=== PATIENT | male | born 1955 | race Caucasian/White ===

== ENCOUNTER 2017-06-01 06:38 | Day surgery (SDC) | payer OTHER ==
[~2017-06-01] VITALS: Ht 167.6 cm; Wt 62.2 kg
[~2017-06-01 06:38] MED LIST: CIPR500T2 PO; Z.0.NO CURRENT MEDS
[2017-06-01] MEDS ORDERED: IOHEXOL 350 MG/ML 50 ML BTL (for Cath Lab) OTHER ONE (06:39)
[2017-06-01 07:40] VITALS: BP 148/77; PULSE 65; RESP 18; TEMP 98; O2SAT 98
[2017-06-01] MEDS ORDERED: IBUP-232 PO (07:40)
[2017-06-01] MEDS ORDERED: AMBI10TA PO (07:40)
[2017-06-01] MEDS ORDERED: OMEP40CA2 PO (07:40)
[2017-06-01] MEDS ORDERED: OXYC30TA PO (07:40)
[2017-06-01] MEDS ORDERED: ZANA4CAP PO (07:40)
[2017-06-01] MEDS ORDERED: SODIUM CHLOR 0.9% 1000 ML INJ 1,000 ML IV SCH (07:45)
[2017-06-01 07:48] LABS: AUTOMATED NEUTROPHIL # 2.3 TH/MM3 (1.8-7.7); BASOPHIL # 0.1 TH/MM3 (0-0.2); EOSINOPHIL # 0.2 TH/MM3 (0-0.4); EOSINOPHIL % 2.7 % (0.0-4.0); HEMATOCRIT 40.7 % (39.0-51.0); LYMPH % 51.3 % (9.0-44.0); LYMPHOCYTE # 3.4 TH/MM3 (1.0-4.8); MEAN CORPUSCULAR HEMOGLOBIN 26.8 PG (27.0-34.0); MEAN CORPUSCULAR HGB CONC 34.4 % (32.0-36.0); MEAN PLATELET VOLUME 8.2 FL (7.0-11.0); MONO % 10.1 % (0.0-8.0); MONOCYTE # 0.7 TH/MM3 (0-0.9); NEUT % 34.9 % (16.0-70.0); PLATELET COUNT 301 TH/MM3 (150-450); RED BLOOD COUNT 5.22 MIL/MM3 (4.50-5.90); WHITE BLOOD COUNT 6.6 TH/MM3 (4.0-11.0)
[2017-06-01 08:03] LABS: BICARBONATE 28.7 MEQ/L (21.0-32.0); CALCIUM 8.6 MG/DL (8.5-10.1); CREATININE 1.07 MG/DL (0.60-1.30)
[2017-06-01 08:05] LABS: PROTHROMBIN TIME - PATIENT 10.4 SEC (9.8-11.6)
[2017-06-01] MEDS ORDERED: HEPARIN SODIUM - IV 10,000 UNITS/10 ML VIAL ONE (10:01)
[2017-06-01] MEDS ORDERED: NITROGLYCERIN INJ 5 ML ONE (10:01)
[2017-06-01] MEDS ORDERED: HEPARIN-NS/PF FLUSH BAG 2,000 ML IV FLUSH ONE (10:01)
[2017-06-01] MEDS ORDERED: MIDAZOLAM HCL 2 MG/2 ML VIAL ONE (10:02)
[2017-06-01] MEDS ORDERED: VERAPAMIL HCL 5 MG/2 ML VIAL ONE (10:02)
[2017-06-01] MEDS ORDERED: MISC INFORMATION XX ONE (11:15)
--- NOTE | 2017-06-01 11:15 | CATHPROC ---
[employer] HIS Report Study Information Study Number Admission Scheduled Start Study Start [id number] Jun 01 2017 6:38AM 06/01/2017 Jun 01 2017 9:47AM Catherine Service Cardiac Catheterization Admit Source Facility Department Other [facility] - Senior Security Engineer Physician and Clinical Staff Initial Koko Lomas Shuttle FixerDemarcus Betts RN Shuttle Fixer Jessica Baker RN Shuttle Fixer Isha Mixon,WENDI Recorder Moisés Anand,RT(R) ScrCarolina ValdiviaRT(R) Procedures Performed Procedure Location (Site) Vessel Name Coronary Angiograms LCA Left Coronary Coronary Angiograms RCA Right Coronary Wire insertion Radial (right) Radial Art. Equipment Time Mail Weigher Description Size Mfg Part Number Used/Scraped CATHETER, FR5 SWAN LY 10:30 LEON JERONIMO FR 5 [id number] *[id number] Used MONITOR TRANSDUCER, TRUWAVE [id number] 09:54 LEON JERONIMO * Used W/STOCKCOCK *[id number] TRANSDUCER, TRUWAVE [id number] 09:54 LEON JERONIMO * Used W/STOCKCOCK *[id number] INTRODUCER SET, 09:54 [employer] FR 5 [id number] *[id number] Used MICROPUNCTURE STIFF [phone] *[id number] 534-521T *[id number] 09:54 [employer] PACK, CCL CUSTOM * Used *[id number] BAND, RADIAL COMPRESSION TR [id number] 11:00 [employer] MEDICAL 24CM Used SHORT 24 *[id number] 09:54 [employer] MEDICAL WIRE, 3MMJ .035 180CM 180CM Used *[id number] 09:54 NAMIC MANIFOLD, 2 PORT * Used *[id number] 09:54 NAMIC MANIFOLD, 4 PORT * Used *[id number] 09:54 [employer] OMNIPAQUE, 350 MG, 150ML 150ML [id number] Used [id number] 09:54 [employer] BLANKET,WARM AIR CCL * Used *[id number] SHEATH, FR6 TRANSRADIAL RM*[id number] 10:29 [employer] FR 6 Used SLENDER 10CM *[id number] SHEATH, FR6 TRANSRADIAL RM*[id number] 10:29 [employer] FR 6 Used SLENDER 10CM *[id number] History: Current Medications Medication Dosage/Unit Route Frequency Last Date/Time Taken Selena Lopez History: Allergies Allergy Reaction penicillin G HIVES History: Risk Factors Family History of Hypertension Dyslipidemia Previous ID Previous Heart Failure Premature CAD Yes No No No No Prior Valve Prior PCI Prior CABG Surgery No No No Cerebrovascular Peripheral Artery Chronic Lung On Dialysis Diabetes Disease Disease Disease No No No No No History: Symptoms/Diagnosis Selection Items SOB History: Stress Tests Stress or Imaging Studies Performed No History: Other Disease Selection Items HTN History: Other Current Smoker Method Quit Packs a Day Years Used Pack Years No Cigarettes 12 Years Ago 1 30 30 Labs Hgb (g/dl) Hct (%) RBC (MIL/MM3) WBC (l/cumm) Platelets (thousands) 11.60-17.00 35.00-51.00 4.00-5.90 4.00-11.00 150.00-450.00 14.0 40.7 5.2 6.6 301 Glucose (mg/dl) BUN (mg/dl) Creatinine (mg/dl) BUN:Creatinine (1:x) 74.00-106.00 7.00-18.00 0.50-1.30 10.00-20.00 93 15 1.0 15 Na (meq/l) K (meq/l) Cl (meq/l) CO2 (mmol/L) Ca (mg/dl) 136.00-145.00 3.50-5.10 98.00-107.00 21.00-32.00 8.50-10.10 140 3.9 105 28.7 8.6 PT (sec) PTT (sec) INR (PTT:PT) 9.80-11.60 24.30-30.10 0.90-1.10 10.4 25.8 1 CPK-MB (ng/ML) 0.50-3.60 Not Drawn Medication Medication Total Dose (Bolus/Oral) Medication Total Dosage/Unit 1% XYLOCAINE 25 mL ATROPINE 0.5 mg FENTANYL 100 mcg RADIAL COCKTAIL 5 mL (Bolus) Medications (Bolus/Oral) Medication Time Given Dosage/Unit Administered By Reason FENTANYL 06/01/2017 10:24:52 AM 50 mcg Demarcus Sandoval 50 mcg FENTANYL given in lab by Demarcus Sandoval RN in Left Antecubital via Peripheral IV. 1% XYLOCAINE 06/01/2017 10:25:55 AM 5 mL Koko Du 5 mL 1% XYLOCAINE given in lab by Koko Du in Right Radial via Subcutaneous. Ntg 200mcg Verapamil 2.5mg Heparin RADIAL COCKTAIL 06/01/2017 10:28:02 AM 5 mL (Bolus) Koko Du 2000U 5 mL (Bolus) RADIAL COCKTAIL given in lab by Koko Du in Right Radial via Radial. Using [S olution Name]. Reason: Ntg 200mcg Verapamil 2.5mg Heparin 2000U. FENTANYL 06/01/2017 10:28:43 AM 50 mcg Demarcus Sandoval 50 mcg FENTANYL given in lab by Demarcus Sandoval, RN in Left Antecubital via Peripheral IV. 1% XYLOCAINE 06/01/2017 10:28:46 AM 20 mL Koko Du 20 mL 1% XYLOCAINE given in lab by Koko Du in Right Arm via Subcutaneous. ATROPINE 06/01/2017 10:34:30 AM 0.5 mg Demarcus Sandoval 0.5 mg ATROPINE given in lab by Demarcus Sandoval, RN in Left Antecubital via Peripheral IV. Medication (Drip) Medication Time Given Dosage/Unit Concentration/Unit Diluent (ml) Solution IV Solutions 06/01/2017 9:50:02 AM 0 mL (IV) 500 NaCl .9 Patient arrived on IV Solutions in Left Antecubital via Peripheral IV. Pump/Drip Flow = 20 ml/hr usin g NaCl .9. Final Case Assessment Cardiovascular HR Rhythm NIBP Chest Pain 86 Sinus 137/76 0 Edema Present Skin color Skin None Normal Warm Circulatory - Right Pulses Dorsalis Pedis Femoral Radial 2 2 2 Scale (0,1,2,3,4,d) Circulatory - Left Pulses Dorsalis Pedis Femoral Radial 2 Scale (0,1,2,3,4,d) Neurological State Oriented to time-place- Alert Moves all extremities person Respiration - General Respiration Rate SpO2 (%) O2 (lpm) (B/min) 7 96 0 Initial Case Assessment Cardiovascular HR Rhythm NIBP Chest Pain 54 Sinus 121/79 0 Edema Present Skin color Skin None Normal Warm Dry Circulatory - Right Pulses Dorsalis Pedis Femoral Radial 2 2 2 Scale (0,1,2,3,4,d) Circulatory - Left Pulses Dorsalis Pedis Femoral Radial 2 Scale (0,1,2,3,4,d) Neurological State Oriented to time-place- Alert Moves all extremities person Respiration - General Respiration Rate SpO2 (%) O2 (lpm) (B/min) 17 99 0 Chronological Log Time Study Chronological Log 9:49:28 Patient arrived via Bed. 9:49:29 Patient Name, D.O.B, / Armband Verified By R.N. 9:49:30 Consent signed by the physician and the patient and verified by the Senior Security Engineer staff. 9:49:30 Pre-op and post- op instructions given; patient acknowledges understanding of instructions. 9:49:31 Verbal Stimulation=2 Physical Stimulation=2 Airway=2 Respiration=2 TOTAL=8. (0=absent, 1=li mited, 2=present) 9:49:33 Presedation assessment performed by Senior Security Engineer RN. 9:49:46 Allens test performed on the right radial and ulnar artery. 9:49:51 Patient has been NPO for More than 6Hrs. 9:49:52 Skin Breakdown- none per patient. 9:49:53 Patient Warmer Placed on the Table. 9:49:55 Marilia Prominences Protected 9:49:57 A # 20 IV was noted in the Antecubital (left). Grade = 0 9:50:02 Patient arrived on IV Solutions in Left Antecubital via Peripheral IV. Pump/Drip Flow = 20 ml/hr using NaCl .9. 9:50:03 History and physical on the chart or being dictated. Assessment: Initial Case, HR=54 BPM, Rhythm=Sinus, RKWF=850/79 mmhg, Chest Pain=0, Edema=None, Color=Normal, Skin = Warm, Dry Right Pulses: Sam Ped=2, Femoral=2, Radial=2 9:55:00 Left Pulses: Femoral=2 Neurological: State=Alert, Ox3, VELEZ Respiration: Resp=17 B/min, SpO2=99 %, O2=0 lpm Vitals capture started with the following parameters, Patient=Adult, Interval=5 min, Initial Pr zexlkl=600 mmHg, 10:03:29 Deflation Rate=5 mmHg 10:04:32 Right Radial and groin(s) prepped with 2% chlorhexidine, and draped after a 3 min. waiting time. 10:05:44 paged 10:05:51 HR=54 bpm, TGQM=061/79 mmhg, SpO2=99.0 %, Resp=17 B/min, Pain=0, Мария=10, Thacker=2 10:09:00 Pressure channel 1 zeroed. 10:09:38 HR=61 bpm, TRLV=399/78 mmhg, SpO2=97.0 %, Resp=7 B/min, Pain=0, Мария=10, Thacker=2 10:14:43 HR=59 bpm, MQHR=352/76 mmhg, SpO2=97.0 %, Resp=9 B/min, Pain=0, Мария=10, Thacker=2 10:19:04 HR=58 bpm, UPDC=041/68 mmhg, SpO2=98.0 %, Resp=5 B/min, Pain=0, Мария=10, Thacekr=2 10:21:08 MD arrived. 10:24:03 HR=64 bpm, JXSD=691/73 mmhg, SpO2=98.0 %, Resp=7 B/min, Pain=0, Мария=10, Thacker=2 Time Out. Correct patient, correct procedure, correct physician, power injector not loaded with contrast with surgical 10:24:38 team present. Time Out Concurred by MD and individual staff in procedure. 10:24:49 Case Start 10:24:52 50 mcg FENTANYL given in lab by Demarcus Sandoval, WENDI in Left Antecubital via Peripheral IV. 10:25:55 5 mL 1% XYLOCAINE given in lab by Koko Du in Right Radial via Subcutaneous. 10:26:07 Access site was Radial Artery. A SHEATH, FR6 TRANSRADIAL SLENDER 10CM FR 6 was advanced into the Radial (right) using the Perc utaneous 10:26:17 technique. 5 mL (Bolus) RADIAL COCKTAIL given in lab by Koko Du in Right Radial via Radial. Us ing [Solution Name]. 10:28:02 Reason: Ntg 200mcg Verapamil 2.5mg Heparin 2000U. 10:28:43 50 mcg FENTANYL given in lab by Demarcus Sandoval, WENDI in Left Antecubital via Peripheral IV. 10:28:46 20 mL 1% XYLOCAINE given in lab by Koko Du in Right Arm via Subcutaneous. 10:29:06 HR=70 bpm, DEWH=822/61 mmhg, SpO2=95.0 %, Resp=11 B/min, Pain=0, Мария=10, Thacker=2 10:30:43 NIBP STAT measurement started. 10:31:19 HR=45 bpm, NIBP=82/41 mmhg, SpO2=98.0 %, Resp=10 B/min, Pain=0, Мария=10, Thacker=2 10:31:34 Access site was Brachial Artery. A SHEATH, FR6 TRANSRADIAL SLENDER 10CM FR 6 was advanced into the Brach. Vein (right) using the Percutaneous :31:47 technique. 10:32:21 A CATHETER, FR5 SWAN LY MONITOR FR 5 was inserted via RA 10:33:14 Vitals capture stopped. 10:34:30 0.5 mg ATROPINE given in lab by Demarcus Sandoval RN in Left Antecubital via Peripheral IV. 10:35:28 NIBP STAT measurement started. 10:35:53 EW=476 bpm, NIBP=93/48 mmhg, SpO2=98.0 %, Resp=9 B/min, Pain=0, Мария=10, Thacker=2 Vitals capture started with the following parameters, Patient=Adult, Interval=5 min, Initial Pr noiwqa=507 mmHg, 10:37:13 Deflation Rate=5 mmHg 10:37:40 HR=99 bpm, NIBP=99/58 mmhg, SpO2=95.0 %, Resp=12 B/min, Pain=0, Мария=10, Thacker=2 Recorded Pressure: PCW, TN=059, Condition=Condition 1 10:38:01 (Pulmonary Capillary Wedge) PCW 10:39:47 Saturation: Site=PA (Pulmonary Artery) , O2=81.3 %, Hgb=14 gm/dl, Condition=Condition 1. Us ed in calculation. 10:40:45 Saturation: Site=Ao (Aorta) , O2=94 %, Hgb=14 gm/dl, Condition=Condition 1. Used in calcula tion. Recorded Pressure: MPA, HR=96, Condition=Condition 1 10:40:59 (Main Pulmonary Artery) MPA 09/07/14 Recorded Pressure: MPA, HR=94, Condition=Condition 1 10:41:32 (Main Pulmonary Artery) MPA 26/-02/22 10:43:10 HR=95 bpm, JVME=172/73 mmhg, SpO2=92.0 %, Resp=6 B/min, Pain=0, Мария=10, Thacker=2 10:43:47 Saturation: Site=PA (Pulmonary Artery) , O2=80.2 %, Hgb=14 gm/dl, Condition=Condition 1. Us ed in calculation. Recorded Pressure: RV, HR=97, Condition=Condition 1 10:44:48 (Right Ventricle) RV 30/0/6 Recorded Pressure: RA, HR=95, Condition=Condition 1 10:45:09 (Right Atrium) RA 6/5/3 10:46:36 Saturation: Site=RA (Right Atrium) , O2=78.2 %, Hgb=14 gm/dl, Condition=Condition 1. Used i n calculation. 10:47:20 [place] Ly Catheter Removed 10:47:44 HR=93 bpm, FCSB=898/65 mmhg, SpO2=92.0 %, Resp=14 B/min, Pain=0, Мария=10, Thacker=2 A JR 4.0 INFINITI CATHETER FR 5 was advanced over a wire. OMNIPAQUE, 350 MG, 150ML 150ML was us ed for 10:48:53 injections. Recorded Pressure: LV, TI=557, Condition=Condition 1 10:50:40 (Left Ventricle) LV 118/0/16 Recorded Pressure: LV, Ao, RJ=826, Condition=Condition 1 10:50:56 (Left Ventricle) LV 112/7/19, (Aorta) Ao 108/59/82 Recorded Pressure: Ao, HR=90, Condition=Condition 1 10:52:21 (Aorta) Ao 101/57/78 10:52:23 The RCA was injected and visualized at various angles. OMNIPAQUE, 350 MG, 150ML 150ML used . 10:52:43 HR=91 bpm, OGWG=962/75 mmhg, SpO2=94.0 %, Resp=14 B/min, Pain=0, Мария=10, Thacker=2 10:53:10 Catheter was removed A JL 3.5 INFINITI CATHETER FR 5 was advanced over a wire. OMNIPAQUE, 350 MG, 150ML 150ML was us ed for 10:53:46 injections. 10:56:01 A WIRE, 3MMJ .035 180CM 180CM was inserted via Radial (right). 10:56:54 Wire removed 10:57:48 HR=89 bpm, LMHZ=663/68 mmhg, SpO2=93.0 %, Resp=7 B/min 10:57:49 The LCA was injected and visualized at various angles. OMNIPAQUE, 350 MG, 150ML 150ML used . 10:58:44 A WIRE, 3MMJ .035 180CM 180CM was inserted via Radial (right). 10:58:56 Catheter was removed 10:58:57 Wire removed 10:59:59 Case End 11:00:58 Activated Clotting Time Drawn 11:01:30 No case complications noted. 11:01:31 Cine recording checked. 11:02:45 HR=90 bpm, TDPF=605/76 mmhg, SpO2=97.0 %, Resp=12 B/min, Pain=0, Мария=10, Thacker=2 11:03:12 Bedside Report will be given. 11:03:18 A Left and Right Heart Cath was performed. Radial Compression Device Used. 10 mLs of air placed in BAND, RADIAL COMPRESSION TR SHORT 24 24 CM. Affected 11:03:35 hand 97 % O2 saturation. 11:04:13 ACT (Normal Range 90-180) = 169 Assessment: Final Case, HR=86 BPM, Rhythm=Sinus, AKRA=913/76 mmhg, Chest Pain=0, Edema=None, Color=Normal, Skin = Warm Right Pulses: Sam Ped=2, Femoral=2, Radial=2 11:04:54 Left Pulses: Femoral=2 Neurological: State=Alert, Ox3, VELEZ Respiration: Resp=7 B/min, SpO2=96 %, O2=0 lpm 11:07:49 Sheath removed; pressure applied to access site. Brachial vein. 11:07:50 HR=84 bpm, ACFQ=063/69 mmhg, SpO2=96.0 %, Resp=18 B/min, Pain=0, Мария=10, Thacker=2 End Study - Contrast Media Used In Study Contrast Total Opened (mL) Total Used (mL) Total Wasted (mL) Omnipaque 150 40 110 End Study - Maximum Contrast Load Max Contrast Load (mL) 310.9 End Study - Radiation Exposure Fluoro Time (minutes) 5.1 End Study - Patient Disposition Complications Transferred To Interventional Outcome No Outpatient Bed No attempt made
--- NOTE | 2017-06-02 09:00 | EKG ---
Date Performed: 06/01/2017 Time Performed: 07:15:30 PTAGE: 61 years EKG: Sinus rhythm . Normal ECG NO PREVIOUS TRACING DOCTOR: Saundra Hylton Interpretating Date/Time 06/02/2017 08:58:50
--- NOTE | 2017-06-05 07:13 | MA ---
cc: Koko Du DO DATE: 06/01/2017 PROCEDURE: Left heart catheterization, right heart catheterization, coronary angiogram, ultrasound guided access. PREPROCEDURE DIAGNOSIS: Severe mitral regurgitation for possible mitral valve replacement versus repair, chest pain. POSTPROCEDURE DIAGNOSIS: Severe mitral regurgitation, minimal coronary artery disease. MEDICATIONS: Fentanyl 100 mcg, atropine 0.5 mg, nitro 200 mcg, heparin 2500 units, verapamil 2.5 mg. CONTRAST USED: 40 mL. FLUOROSCOPY: 5.1 minutes. MODERATE SEDATION: 0 minutes. FRAILTY SCORE: 2. ESTIMATED BLOOD LOSS: 10 mL. PROCEDURAL SUMMARY: Ruperto Scott is a pleasant 61-year-old male who was found to have severe mitral regurgitation by echocardiogram with mitral valve prolapse and recommended cardiac catheterization in anticipation of mitral valve repair versus replacement. Risks, benefits and alternatives were explained to him and he consented as such. He was brought to the lab and prepped in the usual sterile fashion. The right radial artery was accessed using a modified Seldinger technique and placement of a 5/6 Macanese slender sheath. Right brachial vein was accessed using the modified Seldinger technique with ultrasound guidance and placement of a 5/6 Macanese slender sheath. Both were easily aspirated and flushed. The Paisley-Alena catheter was advanced into a wedge position and oxygen saturations, as well as pressures were recorded upon pullback in a standard fashion throughout the heart. Paisley-Alena catheter was removed. During this, the patient was mildly bradycardic, as well as hypotensive most likely due to a vasovagal reaction and 0.5 mg of atropine was given. A JR4 was advanced over a J-wire into the ascending aorta and across the aortic valve for measurement of left ventricular pressure. This was pulled back across the aortic valve showing no significant gradient of aortic stenosis. JR4 was used for selective angiography of the right coronary artery system. This was exchanged out for a JL3.5, which was used to perform selective angiography of the left coronary artery system. JL3.5 was removed over a J wire. A radial band was placed over the arteriotomy site for hemostasis. Right brachial sheath was planned to be removed once ACTs were at an appropriate value. The patient left the slab grinder cardiovascularly stable. FINDINGS: Left main normal size vessel with adequate reflux. It bifurcates into an LAD and circumflex. LAD normal size vessel with mild luminal irregularities in the distal portion. It gives off 2 small diagonals with no significant disease. Left circumflex normal size vessel with no significant disease. It gives off 4 obtuse marginals with the first one being somewhat high possibly a ramus, but no significant disease throughout. RCA, high anterior takeoff with no significant disease. It supplies a PDA as well as the PLB. HEMODYNAMICS: RA 3. RV 30/0, RV EDP 6. PA 26/0, mean PA 11. Wedge 6. LVEDP 19. IMPRESSIONS: 1. Severe mitral regurgitation with mitral valve prolapse. 2. Mild coronary artery disease. RECOMMENDATIONS: 1. Mr. Scott appears to have severe mitral regurgitation with mitral valve prolapse and will be recommended CT surgery. 2. Case discussed will be discussed with CT surgery after the patient's planned NERY on 06/04/2017. 3. Overall, the patient is symptomatic and feels that he cannot do what he used to be able to do last year and has had significant shortness of breath. This was also done in anticipation of hernia surgery needed at some point. Thank you for allowing me to see Ruperto Scott. If there are any questions, please do not hesitate to call. Koko Du, DO VGP/DL , 11:37 PM , 07:12 AM
--- NOTE | 2017-06-06 14:26 | MR ---
cc: Neris Grimes MD DATE: 06/06/2017 VOLUMES: Dynamic FVC mildly reduced. FEV1 moderately reduced. FLOWS: FEV1 percent mildly reduced. FEF 25-75 severely reduced. INTERPRETATION: Moderate obstructive ventilatory defect. R. MD ALBERTO Garcia/ALMAS , 01:57 PM , 02:25 PM
== END 2017-06-01 15:20 | disposition home or self-care (01) ==
LOC: HDOC 06:38 → HDIC 06:39 → HDOC 15:20
PROVIDERS: ATTEND Nuclear Medicine Nuclear Cardiology
DX: I34.0 Nonrheumatic mitral (valve) insufficiency (principal); I25.10 Atherosclerotic heart disease of native coronary artery without angina pectoris
CPT/HCPCS: 80048; 82810; 85025; 85610; 85730; 93005; 93460; C1769; C1893; J1644; J2250; J3010; Q9967

== ENCOUNTER 2017-06-04 08:08 | Day surgery (SDC) | payer OTHER ==
[~2017-06-04 08:08] MED LIST changes: +AMBI10TA PO; -CIPR500T2 PO; +IBUP-232 PO; +OMEP40CA2 PO; +OXYC30TA PO; -Z.0.NO CURRENT MEDS; +ZANA4CAP PO
[2017-06-04] MEDS ORDERED: IOHEXOL 350 MG/ML 10 ML VIAL (for RAD DIAG) IVCONTRAST ONE (08:09)
[2017-06-04] MEDS ORDERED: MONT10TA2 PO (08:43)
[2017-06-04] MEDS ORDERED: DO NOT ADM ANY ANTICOAGULANT DRUGS PRN (09:00)
[2017-06-04] MEDS ORDERED: SODIUM CHLORID 0.9% 500 ML IV PRN (09:45)
[2017-06-04] MEDS ORDERED: CHLORHEXIDINE GLUCONATE 2 % 1 PACK (2 CLOTHS) TOPICAL PRN (09:45)
[2017-06-04] MEDS ORDERED: POVIDONE IODINE 5% (ANTISEPSIS KIT) 4 APPLICATIONS EACH NARE PRN (09:45)
[2017-06-04] MEDS ORDERED: METOPROLOL TARTRATE 25 MG TAB PO PRN (09:45)
[2017-06-04] MEDS ORDERED: LACTATED RINGER'S 1000 ML IV PRN (09:45)
[2017-06-04] MEDS ORDERED: MISCELLANEOUS NURSING INFORMATION XX PRN (11:00)
--- NOTE | 2017-06-04 11:19 | ECHRPT ---
Indication: MR CONCLUSIONS Grossly normal LV size and function. Prolapse of P2 scallop with severe MR. MR jet is very eccentric and anterior along the mitral-aortic valve curtain. BP: / HR: Rhythm: Sinus Technical Quality:Good Medications Complications Proc. Components Anesthesia at bedside for sedation. FINDINGS LEFT VENTRICLE Grossly normal LV size and function. RIGHT VENTRICLE Normal right ventricular size and systolic function. LEFT ATRIUM The left atrial size is mildly dilated. RIGHT ATRIUM The right atrial size is normal. ATRIAL APPENDAGES Normal left atrial appendage size with no evidence of thrombus formation. ATRIAL SEPTUM No atrial level shunt is demonstrated by color flow Doppler or agitated saline imaging. AORTA Descending aorta with no dissection. MITRAL VALVE Redundant tissue. Prolapse of P2 scallop with severe MR. MR jet is very eccentric and anterior along the mitral-aortic valve curtain. AORTIC VALVE Trileaflet aortic valve. No aortic valve stenosis or regurgitation. TRICUSPID VALVE Structurally normal tricuspid valve. There is trace tricuspid valve regurgitation. No tricuspid valv e stenosis. VESSELS Grossly normal. No pulmonary valve regurgitation. Koko Du DO (Electronically Signed) Final Date:04 June 2017 11:18
--- NOTE | 2017-06-04 12:27 | RADRPT ---
EXAM DATE/TIME: 06/04/2017 12:04 [facility] COMPARISON: No previous studies available for comparison. INDICATIONS : Post transesophageal echocardiogram, pre op AVR MEDICAL HISTORY : None. SURGICAL HISTORY : cardiac catherization. ENCOUNTER: Initial ACUITY: 1 day PAIN SCORE: 0/10 LOCATION: Bilateral chest FINDINGS: A single view of the chest demonstrates the lungs to be symmetrically aerated without evidence of mas s, infiltrate or effusion. Bibasilar scarring. Calcified pleural plaques. The cardiomediastinal cont ours are unremarkable. Osseous structures are intact. CONCLUSION: Bibasilar scarring. Calcified pleural plaques which can be seen with asbestosis exposure. Casa Pickett MD on June 04, 2017 at 12:25 Board Certified Radiologist. This report was verified electronically.
[2017-06-04 12:30] LABS: AUTOMATED NEUTROPHIL # 3.3 TH/MM3 (1.8-7.7); BASOPHIL # 0.1 TH/MM3 (0-0.2); EOSINOPHIL # 0.1 TH/MM3 (0-0.4); EOSINOPHIL % 1.4 % (0.0-4.0); HEMATOCRIT 40.6 % (39.0-51.0); HEMOGLOBIN 13.8 GM/DL (13.0-17.0); LYMPH % 41.4 % (9.0-44.0); MEAN CELL VOLUME 78.2 FL (80.0-100.0); MEAN CORPUSCULAR HEMOGLOBIN 26.6 PG (27.0-34.0); MEAN PLATELET VOLUME 8.2 FL (7.0-11.0); MONO % 9.7 % (0.0-8.0); MONOCYTE # 0.7 TH/MM3 (0-0.9); NEUT % 46.5 % (16.0-70.0); PLATELET COUNT 307 TH/MM3 (150-450); RED BLOOD COUNT 5.19 MIL/MM3 (4.50-5.90); RED CELL DISTRIBUTION WIDTH 14.1 % (11.6-17.2); WHITE BLOOD COUNT 7.2 TH/MM3 (4.0-11.0)
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
[2017-06-04 12:52] LABS: BILIRUBIN, URINE NEG (NEG); BLOOD, URINE NEG (NEG); GLUCOSE,URINE NEG (NEG); KETONE, URINE NEG (NEG); NITRITE,URINE NEG (NEG); URINE COLOR LIGHT-YELLOW (YELLW/STRAW); URINE LEUKOCYTE ESTERASE NEG (NEG)
[2017-06-04 12:55] LABS: ALBUMIN 3.9 GM/DL (3.4-5.0); ALT (GPT) 30 U/L (12-78); AST (GOT) 14 U/L (15-37); BICARBONATE 30.1 MEQ/L (21.0-32.0); BLOOD UREA NITROGEN 15 MG/DL (7-18); CALCIUM 8.5 MG/DL (8.5-10.1); CHLORIDE 107 MEQ/L (98-107); CREATININE 1.06 MG/DL (0.60-1.30); GLOMERULAR FILTRATION RATE 71 ML/MIN (>89); GLUCOSE,RANDOM 81 MG/DL (74-106); SODIUM (NA) 143 MEQ/L (136-145)
[2017-06-04 12:57] LABS: ALKALINE PHOSPHATASE 56 U/L (45-117); TOTAL BILIRUBIN ADULT 0.5 MG/DL (0.2-1.0); TOTAL PROTEIN 6.8 GM/DL (6.4-8.2)
--- NOTE | 2017-06-04 13:11 | RADRPT ---
EXAM DATE/TIME: 06/04/2017 12:24 [facility] COMPARISON: No previous studies available for comparison. INDICATIONS : Preop mitral valve replacement. MEDICAL HISTORY : Hypertension. Chronic obstructive pulmonary disease. Arthritis. Tobacco use. SURGICAL HISTORY : Left hand ganglion cyst removal. ENCOUNTER: Initial ACUITY: 1 day PAIN SCORE: 0/10 LOCATION: Bilateral neck PEAK SYSTOLIC VELOCITIES (cm/sec): ICA/CCA RATIO: Right: 0.8 Left: 1.0 ICA: Right: 77 Left: 111 CCA: Right: 102 Left: 110 ECA: Right: 119 Left: 82 VERTEBRAL: Right: 61 antegrade Left: 63 antegrade Elevated flow velocities and ICA/CCA ratios have been found to correlate with increased degrees of vessel stenosis, calculated as percentage of diameter relative to a normal segment of distal ICA/CCA FINDINGS: RIGHT CAROTID: No significant stenosis is visualized. Mild plaque is present. The waveforms are within normal limits . LEFT CAROTID: No significant stenosis is visualized. Mild calcified plaque is present in the bowl. The waveforms ar e within normal limits. VERTEBRAL ARTERIES: Antegrade flow is seen in both vertebral arteries. MISCELLANEOUS: None. CONCLUSION: Mild plaquing with no evidence of stenosis. Luis Lobato MD on June 04, 2017 at 13:04 Board Certified Radiologist. This report was verified electronically.
[2017-06-04 13:23] LABS: PROTHROMBIN TIME - PATIENT 10.6 SEC (9.8-11.6)
--- NOTE | 2017-06-04 14:32 | PD.CAR.PN ---
CVT Progress Note Subjective/Hospital Course: pt seen and evaluated / full consult to follow sts discussed with pt RISK SCORES About the STS Risk Calculator Procedure: MV Replacement Only Risk of Mortality: 1.514% Morbidity or Mortality: 15.215% Long Length of Stay: 7.524% Short Length of Stay: 36.579% Permanent Stroke: 0.632% Prolonged Ventilation: 9.903% DSW Infection: 0.165% Renal Failure: 2.746% Reoperation: 9.11% Labs: Laboratory Tests Test 06/04/17 12:00 06/04/17 12:06 06/04/17 13:00 White Blood Count 7.2 TH/MM3 (4.0-11.0) Red Blood Count 5.19 MIL/MM3 (4.50-5.90) Hemoglobin 13.8 GM/DL (13.0-17.0) Hematocrit 40.6 % (39.0-51.0) Mean Corpuscular Volume 78.2 FL (80.0-100.0) Mean Corpuscular Hemoglobin 26.6 PG (27.0-34.0) Mean Corpuscular Hemoglobin Concent 34.0 % (32.0-36.0) Red Cell Distribution Width 14.1 % (11.6-17.2) Platelet Count 307 TH/MM3 (150-450) Mean Platelet Volume 8.2 FL (7.0-11.0) Neutrophils (%) (Auto) 46.5 % (16.0-70.0) Lymphocytes (%) (Auto) 41.4 % (9.0-44.0) Monocytes (%) (Auto) 9.7 % (0.0-8.0) Eosinophils (%) (Auto) 1.4 % (0.0-4.0) Basophils (%) (Auto) 1.0 % (0.0-2.0) Neutrophils # (Auto) 3.3 TH/MM3 (1.8-7.7) Lymphocytes # (Auto) 3.0 TH/MM3 (1.0-4.8) Monocytes # (Auto) 0.7 TH/MM3 (0-0.9) Eosinophils # (Auto) 0.1 TH/MM3 (0-0.4) Basophils # (Auto) 0.1 TH/MM3 (0-0.2) CBC Comment DIFF FINAL Differential Comment Blood Urea Nitrogen 15 MG/DL (7-18) Creatinine 1.06 MG/DL (0.60-1.30) Random Glucose 81 MG/DL (74-106) Total Protein 6.8 GM/DL (6.4-8.2) Albumin 3.9 GM/DL (3.4-5.0) Calcium Level 8.5 MG/DL (8.5-10.1) Alkaline Phosphatase 56 U/L (45-117) Aspartate Amino Transf (AST/SGOT) 14 U/L (15-37) Alanine Aminotransferase (ALT/SGPT) 30 U/L (12-78) Total Bilirubin 0.5 MG/DL (0.2-1.0) Sodium Level 143 MEQ/L (136-145) Potassium Level 4.3 MEQ/L (3.5-5.1) Chloride Level 107 MEQ/L (98-107) Carbon Dioxide Level 30.1 MEQ/L (21.0-32.0) Anion Gap 6 MEQ/L (5-15) Estimat Glomerular Filtration Rate 71 ML/MIN (>89) Urine Color LIGHT-YELLOW (YELLW/STRAW) Urine Turbidity CLEAR (CLEAR) Urine pH 7.0 (5.0-8.5) Urine Specific [place] 1.011 (1.002-1.035) Urine Protein NEG mg/dL (NEG-TRACE) Urine Glucose (UA) NEG mg/dL (NEG) Urine Ketones NEG mg/dL (NEG) Urine Occult Blood NEG (NEG) Urine Nitrite NEG (NEG) Urine Bilirubin NEG (NEG) Urine Urobilinogen LESS THAN 2.0 MG/DL (LESS Urine Leukocyte Esterase NEG (NEG) Urine WBC LESS THAN 1 /hpf (0-5) Microscopic Urinalysis Comment CULT NOT INDICATED Nasal Screen MRSA (PCR) MRSA NOT DETECTED (NOT Prothrombin Time 10.6 SEC (9.8-11.6) Prothromb Time International Ratio 1.0 RATIO Result Diagram: 06/04/17 1200 06/04/17 1200 Rosemary Arreguin Jun 04, 2017 14:32
--- NOTE | 2017-06-04 15:54 | RADRPT ---
EXAM DATE/TIME: 06/04/2017 14:08 [facility] COMPARISON: No previous studies available for comparison. INDICATIONS : Mitral valve prolapse IV CONTRAST: 100 cc Omnipaque 350 (iohexol) IV RADIATION DOSE: 45.16 CTDIvol (mGy) MEDICAL HISTORY : Chronic obstructive pulmonary disease. Mitral valve prolapse SURGICAL HISTORY : None. ENCOUNTER: Initial ACUITY: 1 day PAIN SCALE: 0/10 LOCATION: Trans Aortic Valve replacment TECHNIQUE: Volumetric scanning was performed using a multi-row detector CT scanner. The data was post processed with a variety of visualization algorithms including full volume maximum intensity projection, multi -planar sliding thin slab reformation, curved planar reformation, and surface rendering techniques. Using automated exposure control and adjustment of the mA and/or kV according to patient size, radiat ion dose was kept as low as reasonably achievable to obtain optimal diagnostic quality images. DIC OM format image data is available electronically for review and comparison. FINDINGS: CARDIAC: The coronary system is right dominant. Normal vessels without calcification or stenosis. There are no microcalcifications. There is no pericardial effusion AORTIC ROOT/VALVE: 3 cusps are evident with no calcifications. The aortic root measures 2.8 cm. Mid thoracic aorta measures 2.6 cm with no calcifications. THORACIC AORTA: Origin of the great vessels is normal. No evidence of aneurysm, mural thrombus, dissection, or steno sis. Mild, scattered atherosclerotic calcification ABDOMINAL AORTA: No evidence of aneurysm, mural thrombus, dissection, or stenosis. Scattered atherosclerotic calcifica tion CELIAC ARTERY: Celiac artery is widely patent. SMA: Superior mesenteric artery is widely patent. RIGHT RENAL ARTERY: Right renal artery is widely patent. LEFT RENAL ARTERY: Left renal artery is widely patent. RIGHT COMMON ILIAC: No evidence of aneurysm, mural thrombus, dissection or stenosis. Some scattered atherosclerotic calci fication centrally. The common femoral measures 7.6 mm. LEFT COMMON ILIAC: No evidence of aneurysm, mural thrombus, dissection, or stenosis. Some scattered episodic calcificat ion centrally. The common femoral measures 7.7 mm. THORAX: The lungs are clear. Thoracic aorta is normal in caliber throughout its length. No adenopathy. Mild b ilateral and symmetric gynecomastia. There is some calcification of the mitral valve annulus. ABDOMEN: Foci of enhancement laterally in the posterior aspect of the right hepatic lobe may represent a small vascular/hemangioma.. Diverticular disease of the descending and sigmoid colon without diverticuliti s PELVIS: There is a right inguinal hernia which only contains fat and measures approximately 1.6 cm in diamete r. However, the anterior lateral right-sided urinary bladder actually tents to the base of the hernia CONCLUSION: 1. Scattered episodic calcification in the thoracic or abdominal aorta and iliac arteries but no sign ificant stenosis or aneurysmal disease. No significant calcification of the aortic valve. 2. Patient appears to be right coronary dominance. 3. Mild calcification of the mitral valve annulus. 4. Diverticula disease of the sigmoid colon without diverticulitis. 5. Mild gynecomastia. 6. Benign-appearing foci of enhancement in the right hepatic lobe may represent a small vascular malf ormations/hemangioma 7. Right inguinal hernia which only contains fat. However, the right anterolateral aspect of the urin [place] bladder actually tents toward the base of the hernia but does not enter the hernia sac itself Rodri Lopez MD on June 04, 2017 at 15:36 Board Certified Radiologist. This report was verified electronically.
[2017-06-04 17:48] LABS: HEMOGLOBIN A1C 5.7 % (4.3-6.0)
== END 2017-06-04 16:30 | disposition home or self-care (01) ==
LOC: HDOC 08:08 → HDIC 08:11 → HDOC 16:30
PROVIDERS: ATTEND Nuclear Medicine Nuclear Cardiology
DX: I34.1 Nonrheumatic mitral (valve) prolapse (principal); Z79.899 Other long term (current) drug therapy; J44.9 Chronic obstructive pulmonary disease, unspecified; I10 Essential (primary) hypertension; R06.02 Shortness of breath; Z01.818 Encounter for other preprocedural examination
CPT/HCPCS: 71045; 74174; 80053; 81001; 83036; 85025; 85610; 86850; 86900; 86901; 87641; 93312; 93320; 93325; 93880; 94010; Q9967

== ENCOUNTER 2017-06-13 05:23 | Inpatient (IN) | payer OTHER, MEDICARE ==
[~2017-06-13] VITALS: Ht 167.6 cm; Wt 68.0 kg
[~2017-06-13 05:23] MED LIST changes: +MONT10TA2 PO
[2017-06-13] MEDS ORDERED: CHLORHEXIDINE GLUCONATE 2 % 1 PACK (2 CLOTHS) TOPICAL PRN (06:15)
[2017-06-13] MEDS ORDERED: POVIDONE IODINE 5% (ANTISEPSIS KIT) 4 APPLICATIONS EACH NARE PRN (06:15)
[2017-06-13] MEDS ORDERED: METOPROLOL TARTRATE 25 MG TAB PO PRN (06:15)
[2017-06-13] MEDS ORDERED: SODIUM CHLORID 0.9% 500 ML IV PRN (06:15)
[2017-06-13] MEDS ORDERED: VANCOMYCIN 1000 MG in NS IRR BTL 1000 ML IRRIGATION SCH (06:15)
[2017-06-13] MEDS ORDERED: SODIUM CHLORIDE 0.9% FLUSH 10 ML FLUSH IV FLUSH PRN ×2 (06:15→12:30)
[2017-06-13] MEDS ORDERED: CHLORHEXIDINE GLUCONATE 4% SOLN 120 ML BTL TOPICAL SCH (06:15)
[2017-06-13] MEDS ORDERED: VANCOMYCIN 1 GM/200 ML PREMIX ON-CALL IV SCH (06:15)
[2017-06-13] MEDS ORDERED: INSULIN REGULAR 100 UNITS in NS 100 ML IV PRN (06:15)
[2017-06-13] MEDS ORDERED: METOPROLOL TARTRATE 25 MG TAB PO SCH (06:15)
[2017-06-13] MEDS ORDERED: DEXTROSE 50% IN WATER 50 ML VIAL(D50) IV PUSH PRN ×2 (06:15→12:30)
[2017-06-13] MEDS ORDERED: LACTATED RINGER'S 1000 ML IV PRN (06:15)
[2017-06-13] MEDS ORDERED: HEPARIN SODIUM - SQ 10,000 UNITS/ML VIAL ONE (06:32)
[2017-06-13] MEDS ORDERED: VANCOMYCIN HCL 1000 MG VIAL ONE ×2 (06:32→06:39)
[2017-06-13] MEDS ORDERED: SODIUM CHLOR 0.9% 250 ML INJ 250 ML ONE (06:39)
[2017-06-13] MEDS ORDERED: BUPIVACAINE LIPOSO PF 1.3% INJ 20 ML, DEXAMETHASONE INJ 4 MG, MORPHINE INJ 8 MG in SODI... IRRIGATION ONE (07:00)
[2017-06-13] MEDS ORDERED: POTASSIUM CHLOR 20 MEQ PREMIX 100 ML ONE (07:01)
[2017-06-13] MEDS ORDERED: CUSTODIOL HTK IRR SOLN 2,000 ML ONE (07:01)
[2017-06-13] MEDS ORDERED: MANNITOL INJ 100 ML ONE (07:02)
[2017-06-13] MEDS ORDERED: SODIUM BICARBONATE 8.4% INJ 50 MEQ/50 ML SYR ONE (07:02)
[2017-06-13] MEDS ORDERED: HEPARIN SODIUM - IV 10,000 UNITS/10 ML VIAL ONE (07:03)
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
--- NOTE | 2017-06-13 09:50 | HHI.FF ---
Face to Face Verification Diagnosis: (1) Mitral valve insufficiency (2) Mitral valve prolapse (3) chronic back pain (4) S/P MVR (mitral valve replacement) Home Health Nursing Order: Medication education-adverse effect Wound care and dressing changes Nursing assessment with vital signs Instructions: Heart and Vascular Surgery patients *Special attention to sternal dressing Mandatory frequency Assess and evaluation, 4 days in a row The next week 3X week 2 times a week for 4 weeks 1 time a week for 5 weeks Schedule Heart and Vascular patients for full 60 day certification period Initial visit Review Open Heart Surgery Discharge Instructions (Sternal precautions, Activity, Elastic hose, Incision care, Driving, Incentive spirometry, Smoking, [place], Work and other) Need Betadine to paint incision Medication reconciliation Importance of follow up care/ check on appointments Make calendar record temperature daily When to call [facility] nurse, review instructions, phone list Incentive Spirometry, demonstration Visit 1- Begin discharge instruction for patient family and/ or caregiver using teach back method- Signs and symptoms of infection Disease characteristics Medicines and side effects Foods and nutrition/ appetite Infection control/ hand washing/ hygiene Visit 2- Continue teaching Discharge instructions- include additional information on smoking cessation , sternal dressing (sternal vac) Visit 3- Continue teaching- Cough and deep breathing, incision monitoring. Choose my plate Visit 4- Continue teaching- Discuss limitations Discuss how they are feeling Discuss progress toward goals Remaining visits- continue teaching and monitoring For any questions please call : Sunday 8am-5pm Heart & Vascular Surgery Office ( Dr. Marie & Dr. Ray), After Hours / Nights (5pm -8am) Weekends and Holidays Please call [facility] Cardiac Intermediate Care Unit (CIC) Charge Nurse PREVENA Single Use Negative Wound Therapy System Caregiver Instruction Sheet 1. A Prevena dressing system was applied to the chest incision during surgery , to promote wound healing. It works via a suction device (negative pressure wound therapy) to remove low to moderate levels of exudate (drainage) and infectious materials. We recommend that the device stay in place for up to seven days, from day of surgery. 2. Day of Surgery___/04/01 Day of Removal ___/10/30 3. The dressing should only be removed by a health intensive care medicine specialist. Please arrange removal of device to coincide with Home Health visit and or with Nursing staff at Rehab 4. If skin reddening or irritation of skin occurs, or excessive drainage, please notify the Cardiovascular Surgeons office at [phone]. 5. Light showering is permissible; however the pump should be disconnected and placed in safe location, where it will not get wet. The dressing should not be exposed to direct spray or submerged in water. No bath tub / shower only. Ensure the end of the tubing attached to the dressing is facing down so that water does not enter the top of the tube. 6. To remove Prevena dressing: press purple button to turn off device / remove the suction. Then disconnect the tubing from the pump. The fixation strips should be stretched away from the skin and the dressing lifted at one corner and peeled back until it has been fully removed. 7. After removal, it is ok to shower daily using liquid dial soap and clean wash cloth, rinse and pat dry, and leave incision open to air dry. For any concerns regarding Prevena dressing, and or wounds, please contact Debra Cary, patient navigator at [phone] or notify the Cardiovascular Surgeons office at [phone]. Incentive spirometry Q1 hr x 10, while awake, also use acapella device hourly whole awake Sternal Breast Bone Precautions: NO pushing or pulling, ( pt must use sternal pillow to support chest with all activities and with coughing ( takes up to 3 months breast bone to heal ) Daily incision care: ok to shower daily, no tub bath. Wash all incisions with liquid dial soap, clean wash cloth to each site, rinse and pat dry. Observe for any signs of infection, such as drainage which is dark yellow, ferraro, green or foul smelling. Immediately report to the surgeon any drainage from the chest incision, or legs, and for any abnormal drainage from the chest tube sites. Notify surgeon if any temp >101.5 degrees F. When specialty dressing removed/ or if you do not have one, continue to shower daily as above, then rinse and pat incision dry and paint with betadine daily x 5 days. Allow steri strips to fall off if you have any. Avoid lotions, creams, salves, oils, etc. for the first month Please see attached forms for additional instructions regarding post Open Heart specialty wound vacuum dressings. LIVE or Prevena , Dressing to be removed by Nursing staff on __06/20/[address] Ray patients , please obtain CBC, BMP, PA & Lat CXR in 2 weeks, results to Dr. Ray ( prescription will be given) ( ) (Tele: [phone]) , Valve replacement pts will need 2decho in 2 weeks with results to Dr. Ray . Please obtain 2 d echo at your billet header office if possible F/U appointment: as per DC instructions: PCP in 2 weeks, CV surgeon 2 weeks, Retail Agent 3-4 weeks For any questions regarding incisions/ dressing / meds / post op care or above Symptoms, Sunday 8am-5pm Heart & Vascular Surgery Office ( Dr. Marie & Dr. Ray), After Hours / Nights (5pm -8am) Weekends and Holidays Please call [facility] Cardiac Intermediate Care Unit (CIC) Charge Nurse I have seen patient Ruperto Scott on 06/13/17. My clinical findings support the need for the requested home health care services because: Deconditioned w/ increased weakness I certify that my clinical findings support that this patient is homebound because: Post-op weakness Rosemary Arreguin June 13, 2017 09:50
[2017-06-13] MEDS ORDERED: HEPARIN SODIUM - SQ 10,000 UNITS/ML VIAL OTHER ONE (12:00)
[2017-06-13] MEDS ORDERED: LIDOCAINE HCL 1% PF 5 ML SYRINGE OTHER ONE (12:00)
[2017-06-13] MEDS ORDERED: PROTAMINE SULFATE 250 MG/25 ML VIAL IV ONE (12:00)
[2017-06-13] MEDS ORDERED: DEXMEDETOMIDINE HCL 200 MCG/2 ML VIAL IV ONE (12:00)
[2017-06-13] MEDS ORDERED: PROPOFOL 500 MG/50 ML BTL IV ONE (12:00)
[2017-06-13] MEDS ORDERED: VECURONIUM BROMIDE 10 MG VIAL IV ONE (12:00)
[2017-06-13] MEDS ORDERED: LACTATED RINGER'S 1000 ML INJ 2,000 ML IV ONE (12:00)
[2017-06-13] MEDS ORDERED: PHENYLEPH/NS 1000 MCG/10 ML SYR IV ONE (12:00)
[2017-06-13] MEDS ORDERED: ePHEDrine/NS 25 MG/5 ML SYRINGE IV ONE (12:00)
[2017-06-13] MEDS ORDERED: EPINEPHrine HCL (1:1000) 1 MG/ML VIAL IV ONE (12:00)
[2017-06-13] MEDS ORDERED: GLYCOPYRROLATE 0.2 MG/ML VIAL IV ONE (12:00)
[2017-06-13] MEDS ORDERED: AMINOCAPROIC ACID INJ 250 MG/ML 20 ML VIAL IV ONE (12:00)
[2017-06-13] MEDS ORDERED: CALCIUM CHLORIDE 10% SOLN 1 GRAM/10 ML SYR IV ONE (12:00)
[2017-06-13] MEDS ORDERED: SODIUM BICARBONATE 8.4% INJ 50 MEQ/50 ML SYR IV ONE (12:00)
[2017-06-13] MEDS ORDERED: MAGNESIUM SULFATE 1 GM/2 ML VIAL IV ONE (12:00)
[2017-06-13] MEDS ORDERED: PHENYLEPHRINE HCL 10 MG/ML VIAL IV ONE (12:00)
[2017-06-13] MEDS ORDERED: NITROGLYCERIN 50 MG/DEXTROSE 5% SOLN 250 ML BTL IV ONE (12:00)
[2017-06-13] MEDS ORDERED: LABETALOL HCL 100 MG/20 ML VIAL IV ONE (12:00)
[2017-06-13] MEDS ORDERED: LACTATED RINGER'S 1000 ML INJ 500 ML IV PRN (12:23)
[2017-06-13] MEDS ORDERED: Post-op Orders (for Pharmacy) OTHER ONE (12:30)
[2017-06-13] MEDS ORDERED: hydrALAZINE HCL 20 MG/ML VIAL IV PUSH PRN (12:30)
[2017-06-13] MEDS ORDERED: ACETAMINOPHEN 650 MG SUPP RECTAL PRN (12:30)
[2017-06-13] MEDS ORDERED: RESP: RACEPINEPHRINE 2.25% 0.5 ML NEB NEB PRN (12:30)
[2017-06-13] MEDS ORDERED: MAGNESIUM SULFATE INJ 2 GM in SODIUM CHLORIDE 0.9% INJ 100 ML IV PRN ×4 (12:30)
[2017-06-13] MEDS ORDERED: CALCIUM CHLORIDE 10% 1 GRAM/10 ML VIAL IV PUSH PRN (12:30)
[2017-06-13] MEDS ORDERED: MORPHINE SULFATE 4 MG/ML INJ IV PUSH PRN (12:30)
[2017-06-13] MEDS ORDERED: POTASSIUM CHLOR 20 MEQ PREMIX 100 ML IV PRN ×3 (12:30)
[2017-06-13] MEDS ORDERED: ACETAMINOPHEN/HYDROcodone 325 MG/5 MG TAB PO PRN ×2 (12:30)
[2017-06-13] MEDS ORDERED: ACETAMINOPHEN 325 MG TAB PO PRN (12:30)
[2017-06-13] MEDS ORDERED: METOPROLOL TARTRATE 5 MG/5 ML VIAL IV PUSH PRN (12:30)
[2017-06-13] MEDS ORDERED: POTASSIUM CHLORIDE 20 MEQ CONTROLLED RELEASE TAB PO PRN ×2 (12:30)
[2017-06-13] MEDS ORDERED: SODIUM BICARBONATE 8.4% SOLN 50 MEQ/50 ML VIAL IV PUSH PRN ×2 (12:30)
[2017-06-13] MEDS ORDERED: MEPERIDINE HCL 25 MG/ML VIAL IV PUSH PRN (12:30)
--- NOTE | 2017-06-13 12:37 | PD.OP ---
cc: Soto Marie MD; Koko Du DO Operative Report Date of Surgery: June 13, 2017 Preoperative Diagnosis: Postoperative Diagnosis: Procedure: 1. Minimally Invasive Mitral Valve Repair 2. Quadrangular resection of the Posterior Leaflet and Mitral Annuplasty - 30 mm Profile 3D Ring 3. Left Femoral Artery and Vein Cannulation 4. Intercostal Nerve Block Surgeon: Soto Marie Insurance Application Investigator(s): Lori Anand Operation and Findings: PREOPERATIVE DIAGNOSES 1. Severe Mitral Insufficiency 2. Ojeda's Valve POSTOPERATIVE DIAGNOSES Same SURGICAL PROCEDURE 1. Minimally Invasive Mitral Valve Repair 2. Quadrangular resection of the Posterior Leaflet and Mitral Annuplasty - 30 mm Profile 3D Ring 3. Left Femoral Artery and Vein Cannulation 4. Intercostal Nerve Block RETAIL MARKETING MANAGER JARROD Carrillo ANESTHESIA General endotracheal. ART TRACER Cheryl Pearson CRNA, Tomy Gordillo MD PREPARATION ChloraPrep. NEEDLE, SPONGE AND INSTRUMENT COUNT Correct. DRAINS 32 Fr Chest Tube and 24 Fr Anil. COMPLICATIONS None. INDICATIONS The patient is a 61-year-old with severe mitral regurgitation, presenting for surgical correction of the above pathology. DESCRIPTION OF PROCEDURE The patient was brought to the operating room and placed supine on the OR table. Following the induction of adequate general endotracheal anesthesia and placement of appropriate monitoring devices, the patient was then prepped and draped in the standard sterile fashion. Intraoperative NERY revealed a Ojeda's type valve with severe MR. An incision was made over the lef femoral vessels and the Common Femoral artery and vein dissected free. The patient was systemically heparinized and anticoagulation monitored by serial ACT measurements. A pursestring sutures of 5-0 Prolene was placed on the femoral artery and another one on the femoral vein. At this point, arterial and venous cannulae were introduced using the Seldinger technique with NERY guidance with confirmation of the venous cannula in the SVC, and attached to the arterial and venous components of the bypass circuit respectively. A mini-thoracotomy (6 cm) was then performed in the 4th ICS anterior axillary line and carried down to the pleura. The right pleural space was entered. The patient was placed on cardiopulmonary bypass. The pericardium was then opened longitudinally approximately 2.5-3 cm anterior to the right phrenic nerve from the IVC to the ascending aorta. Stay sutures were placed and the heart exposed. The aorta was dissected free from the underlying tissue and an antegrade needle placed on the proximal aorta. Continuous diffusion of CO2 was used from hereon until the closure. The crossclamp was applied and 1.5 L of antegrade cardioplegia solution ( Usp HTK) was given. Upon achieving adequate diastolic arrest of the heart the inter-atrial groove was dissected free. The left atrium was opened and the mitral valve analyzed. Mitral valve exposure was obtained using the atrial lift retractor. The valve appeared incompetent with elongation of the P2 chords and resultant prolapse of a thickened and retracted portion of the posterior leaflet. Quadrangular resection of P2 was performed and the leaflets repaired with interrupted 5-0 Prolene sutures. Horizontal mattress sutures of interrupted 2-0 Ethibond were placed on the mitral annulus. After adequate sizing, a 30 mm Medtronic Profile 3D annuloplasty ring was brought in the surgical field and the sutures passed through the skirt and the ring was situated and anchored with the Cor-Knot device. This appeared to be a good fit. Saline testing revealed a perfectly competent valve with the leaflets coapting in the same plane. Gradual rewarming was initiated and the atrium closed closed in 2 layers with a 4-0 Prolene suture. Ventricular pacing wires were placed and exited through the chest drain site. With the aortic root vent on suction, the cross clamp was removed and upon achieving normothermic cardiac activity, patient was weaned from CPB without any difficulty. Transesophageal echocardiography revealed a well-situated mitral prosthesis with no evidence of perivalvular leak and no mitral stenosis or regurgitation. Protamine was given. Decannulation was performed and all sites were inspected for hemostasis. The femoral artery had a good distal and pedal pulses. At this point the closure was undertaken. Intercostal nerve block was performed using Exparel at the level of the incision as well as threee rib spaces above and below. A 32 Fr chest tube was placed in the pleural space and a 24 Anil in the pericardial space. The intercostal space was approximated with 2 pericostal sutures of #1 Vicryl. The musculo-fascial layer was then closed in 2 layers. The skin was reapproximated with subcuticular stitch and Dermabond. Similarly, after irrigation with antibiotic solution, the femoral incision was closed in 2 layers and the skin closed with subcuticular stitch and Dermabond. The patient tolerated the procedure well and was transferred to CVICU in stable condition. Soto Marie MD June 13, 2017 12:37
[2017-06-13 13:15] VITALS: BP_SYST 106; BP_SYST 117; BP_DIAS 47; BP_DIAS 65; PULSE 64; RESP 8; TEMP 97; O2SAT 99
[2017-06-13 13:20] VITALS: O2SAT 97
[2017-06-13] MEDS ORDERED: NEOSTIGMINE 5 MG/5 ML SYRINGE ONE (13:25)
[2017-06-13 13:30] VITALS: PULSE 55
[2017-06-13] MEDS ORDERED: MIDAZOLAM HCL 2 MG/2 ML VIAL ONE (13:31)
[2017-06-13] MEDS ORDERED: fentaNYL CITRATE 250 MCG/5 ML AMP ONE ×2 (13:31)
[2017-06-13] MEDS: CALCIUM CHLORIDE INJ 1 GM in SODIUM CHLORIDE 0.9% INJ 100 ML IV PRN ×3 (13:39→22:00)
--- NOTE | 2017-06-13 13:44 | RADRPT ---
EXAM DATE/TIME: 06/13/2017 13:20 [facility] COMPARISON: CTA TRANS AORTIC VALVE REPLACEMENT, June 04, 2017, 14:08. CHEST SINGLE AP, June 04, 2017, 12:04. INDICATIONS : Post op CABG. MEDICAL HISTORY : Chronic obstructive pulmonary disease. Mitral valve prolapse SURGICAL HISTORY : None. ENCOUNTER: Initial ACUITY: 1 day PAIN SCORE: Non-responsive. LOCATION: Bilateral chest FINDINGS: Portable AP view of the chest demonstrates a normal-sized cardiac silhouette in this patient post travis ve replacement. There is a right chest tube present. No pneumothorax is visualized. Right IJ line dis vivian tip is in the SVC and nonspecific line overlies the mediastinum in the midline. Lungs are underin flated and there are linear opacities at both lung bases. No pleural effusion or pneumothorax is seen . There is subcutaneous emphysema on the right chest wall. CONCLUSION: 1. Tubes and lines, as above. Right chest tube is present and no pneumothorax is visualized. 2. Underinflation with atelectasis at the lung bases. Griffin Hensley MD on June 13, 2017 at 13:39 Board Certified Radiologist. This report was verified electronically.
[2017-06-13] MEDS ORDERED: NITROGLYCERIN-D5W 50 MG/250 ML 250 ML IV PRN (14:00)
[2017-06-13] MEDS ORDERED: DOBUTamine PREMIX DRIP 250 ML IV PRN (14:00)
[2017-06-13] MEDS ORDERED: DEXMEDETOMIDINE INJ 200 MCG in SODIUM CHLORIDE 0.9% INJ 50 ML IV PRN (14:00)
[2017-06-13] MEDS ORDERED: DOPamine 800 MG/500 ML INJ 500 ML IV PRN (14:00)
[2017-06-13] MEDS ORDERED: INSULIN REGULAR (IV INFUSION) 100 UNITS in SODIUM CHLORIDE 0.9% INJ 99 ML IV PRN (14:00)
[2017-06-13] MEDS ORDERED: CLEVIDIPINE INJ 50 ML IV PRN (14:00)
[2017-06-13] MEDS ORDERED: PHENYLEPHRINE INJ 40 MG in DEXTROSE 5% IN WATE 500 ML INJ 496 ML IV PRN ×2 (14:00)
[2017-06-13] MEDS: KETOROLAC TROMETHAMINE 30 MG/ML (IVP) VIAL IV PUSH PRN ×2 (14:21→23:19)
[2017-06-13 15:00] VITALS: BP_SYST 102; BP_SYST 99; BP_DIAS 48; BP_DIAS 63; PULSE 52; PULSE 54; RESP 14; TEMP 97; O2SAT 95
[2017-06-13] MEDS: ACETAMINOPHEN 1000 MG/100 ML 100 ML IV SCH ×2 (15:19→21:00)
[2017-06-13] MEDS: ALBUMIN 5% INJ 250 ML IV PRN ×2 (15:20→21:25)
[2017-06-13] MEDS ORDERED: HYDROmorphone HCL PF 0.5 MG/0.5 ML SYRINGE IV PUSH PRN (16:30)
[2017-06-13] MEDS: RESP: ALBUTEROL 2.5 MG/IPRATROPIUM 0.5 MG NEB (SCH) NEB ×2 (16:35→21:36)
[2017-06-13] MEDS: HYDROmorphone HCL PF 2 MG/ML VIAL IV PRN ×2 (16:51→18:51)
[2017-06-13] MEDS ORDERED: CALCIUM CHLORIDE INJ 1 GM in SODIUM CHLORIDE 0.9% INJ 100 ML IV ONE (17:45)
[2017-06-13 20:00] VITALS: BP_SYST 91; BP_SYST 95; BP_DIAS 38; BP_DIAS 56; PULSE 66; RESP 18; TEMP 99.2; O2SAT 99
[2017-06-13] MEDS: VANCOMYCIN INJ 1,250 MG in SODIUM CHLOR 0.9% 250 ML INJ 250 ML IV SCH (20:00)
[2017-06-13] MEDS: MONTELUKAST SODIUM 10 MG TAB PO SCH (21:00)
[2017-06-13] MEDS ORDERED: SODIUM CHLORIDE 0.9% FLUSH 10 ML FLUSH IV FLUSH SCH (21:00)
[2017-06-13] MEDS ORDERED: ZOLPIDEM TARTRATE 10 MG TAB PO PRN (21:00)
[2017-06-13] MEDS ORDERED: AMIODARONE 200 MG TAB PO SCH (21:00)
[2017-06-13] MEDS ORDERED: DOPamine 400 MG/250 ML INJ 250 ML IV PRN (21:30)
[2017-06-13] MEDS ORDERED: DOPamine 400 MG/250 ML INJ 250 ML ONE (21:30)
[2017-06-13 22:00] VITALS: O2SAT 99
[2017-06-13] MEDS: ONDANSETRON HCL 4 MG/2 ML VIAL IV PUSH PRN (23:20)
[2017-06-14] VITALS (10 sets, daily range): BP systolic 115–124; BP diastolic 47–62; PULSE 62–97; RESP 18–22; TEMP 98.1–99.4; O2SAT 94–98
[2017-06-14] MEDS: HYDROmorphone HCL PF 0.5 MG/0.5 ML SYRINGE IV PUSH PRN ×3 (02:04→08:51)
[2017-06-14] MEDS: ACETAMINOPHEN 1000 MG/100 ML 100 ML IV SCH ×2 (03:00→08:48)
[2017-06-14] MEDS: RESP: ALBUTEROL 2.5 MG/IPRATROPIUM 0.5 MG NEB (SCH) NEB ×3 (04:17→22:08)
[2017-06-14 05:12] LABS: HEMATOCRIT 31.9 % (39.0-51.0); HEMOGLOBIN 10.9 GM/DL (13.0-17.0); MEAN CELL VOLUME 78.2 FL (80.0-100.0); MEAN CORPUSCULAR HEMOGLOBIN 26.8 PG (27.0-34.0); MEAN CORPUSCULAR HGB CONC 34.3 % (32.0-36.0); MEAN PLATELET VOLUME 8.4 FL (7.0-11.0); PLATELET COUNT 109 TH/MM3 (150-450); RED BLOOD COUNT 4.08 MIL/MM3 (4.50-5.90); RED CELL DISTRIBUTION WIDTH 13.9 % (11.6-17.2); WHITE BLOOD COUNT 11.3 TH/MM3 (4.0-11.0)
[2017-06-14] MEDS: ONDANSETRON HCL 4 MG/2 ML VIAL IV PUSH PRN (05:17)
--- NOTE | 2017-06-14 05:18 | RADRPT ---
EXAM DATE/TIME: 06/14/2017 04:23 [facility] COMPARISON: CTA TRANS AORTIC VALVE REPLACEMENT, June 04, 2017, 14:08. CHEST SINGLE AP, June 13, 2017, 13:20. INDICATIONS : Shortness of breath, possible pulmonary disease. MEDICAL HISTORY : Chronic obstructive pulmonary disease. SURGICAL HISTORY : TAVR ENCOUNTER: Subsequent ACUITY: 2 days PAIN SCORE: 0/10 LOCATION: Bilateral chest FINDINGS: A single view of the chest demonstrates persistent left basilar consolidation/atelectasis with improv ing aeration in right base. Valvular prostheses and mediastinal ILAN type drain. Right-sided colostomy tube without pneumothorax. Right IJ central venous catheter projects over the central venous system. Heart size is normal. Osseous structures are intact. CONCLUSION: 1. Persistent left basilar consolidation with improving aeration in the right base. 2. Postsurgical changes with mediastinal ILAN type drain and valvular prostheses. 3. Right-sided thoracostomy tube without pneumothorax Rodri Lopez MD on June 14, 2017 at 5:13 Board Certified Radiologist. This report was verified electronically.
[2017-06-14 05:36] LABS: BICARBONATE 26.2 MEQ/L (21.0-32.0); CALCIUM 8.3 MG/DL (8.5-10.1); CREATININE 0.8 MG/DL (0.60-1.30); MAGNESIUM 2.2 MG/DL (1.5-2.5)
[2017-06-14] MEDS: PANTOPRAZOLE SOD 40 MG DELAYED RELEASE TAB PO SCH (06:00)
[2017-06-14] MEDS: VANCOMYCIN INJ 1,250 MG in SODIUM CHLOR 0.9% 250 ML INJ 250 ML IV SCH ×2 (07:38→20:39)
[2017-06-14] MEDS ORDERED: DEXTROSE 50% IN WATER 50 ML VIAL(D50) IV PUSH PRN (09:15)
[2017-06-14] MEDS ORDERED: SOD PHOSPHATE/SOD BIPHOSPHATE (ADULT) ENEMA 133ML RECTAL PRN (09:15)
[2017-06-14] MEDS ORDERED: GLUCAGON 1 MG/ML VIAL OTHER PRN (09:15)
[2017-06-14] MEDS ORDERED: BISACODYL 10 MG SUPP RECTAL PRN (09:15)
[2017-06-14] MEDS: ASPIRIN 81 MG CHEW TAB PO SCH (09:36)
[2017-06-14] MEDS: DOCUSATE SODIUM 100 MG CAP PO SCH ×2 (09:37→21:00)
[2017-06-14] MEDS: INSULIN ASPART SUPPLEMENTAL SCALE SQ SCH ×3 (10:00→22:00)
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
--- NOTE | 2017-06-14 15:36 | EKG ---
Date Performed: 06/14/2017 Time Performed: 06:36:54 PTAGE: 61 years EKG: Atrial fibrillation with PVC(s) or aberrant ventricular conduction Abnormal ECG PREVIOUS TRACING : 06/01/2017 07.15 Since the prior tracing, the patient has developed atrial f ibrillation and PVCs. DOCTOR: Ilsa Morocho Interpretating Date/Time 06/14/2017 15:34:56
[2017-06-14] MEDS: KETOROLAC TROMETHAMINE 30 MG/ML (IVP) VIAL IV PUSH PRN (15:57)
[2017-06-14] MEDS: MONTELUKAST SODIUM 10 MG TAB PO SCH (20:54)
[2017-06-14] MEDS: SENNOSIDES 8.6 MG TAB PO SCH (21:00)
[2017-06-15] VITALS (11 sets, daily range): BP systolic 127–148; BP diastolic 60–78; PULSE 64–100; RESP 16–22; TEMP 98.1–99.9; O2SAT 93–97
[2017-06-15] MEDS: INSULIN ASPART SUPPLEMENTAL SCALE SQ SCH ×5 (02:00→21:00)
[2017-06-15 04:22] LABS: AUTOMATED NEUTROPHIL # 12.3 TH/MM3 (1.8-7.7); BASOPHIL % 0.1 % (0.0-2.0); HEMATOCRIT 33.6 % (39.0-51.0); HEMOGLOBIN 11.2 GM/DL (13.0-17.0); LYMPH % 6.7 % (9.0-44.0); MEAN CELL VOLUME 79.3 FL (80.0-100.0); MEAN CORPUSCULAR HEMOGLOBIN 26.5 PG (27.0-34.0); MEAN CORPUSCULAR HGB CONC 33.5 % (32.0-36.0); MEAN PLATELET VOLUME 8.8 FL (7.0-11.0); MONO % 10.5 % (0.0-8.0); MONOCYTE # 1.6 TH/MM3 (0-0.9); NEUT % 82.7 % (16.0-70.0); PLATELET COUNT 127 TH/MM3 (150-450); RED BLOOD COUNT 4.24 MIL/MM3 (4.50-5.90); RED CELL DISTRIBUTION WIDTH 14.2 % (11.6-17.2); WHITE BLOOD COUNT 14.9 TH/MM3 (4.0-11.0)
[2017-06-15 04:31] LABS: INTERNATIONAL NORMALIZED RATIO 1.1 RATIO; PROTHROMBIN TIME - PATIENT 11.4 SEC (9.8-11.6)
[2017-06-15 04:45] LABS: BICARBONATE 24.6 MEQ/L (21.0-32.0); CALCIUM 8.2 MG/DL (8.5-10.1); CREATININE 0.95 MG/DL (0.60-1.30); MAGNESIUM 1.9 MG/DL (1.5-2.5)
[2017-06-15] MEDS: PANTOPRAZOLE SOD 40 MG DELAYED RELEASE TAB PO SCH (05:20)
[2017-06-15] MEDS: RESP: ALBUTEROL 2.5 MG/IPRATROPIUM 0.5 MG NEB (SCH) NEB ×3 (08:40→21:28)
[2017-06-15] MEDS ORDERED: MORPHINE SULFATE 2 MG/ML SYRINGE IV PUSH ONE (08:45)
[2017-06-15] MEDS ORDERED: POTASSIUM CHLORIDE 20 MEQ CONTROLLED RELEASE TAB PO ONE (08:45)
[2017-06-15] MEDS ORDERED: FUROSEMIDE 20 MG/2 ML VIAL IV PUSH ONE (09:00)
[2017-06-15] MEDS: MAGNESIUM SULFATE 1 GM PREMIX 100 ML IV SCH ×2 (09:13→09:43)
[2017-06-15] MEDS: MULTIVITAMINS/MINERALS THERAPEUTIC TAB PO SCH (09:44)
[2017-06-15] MEDS: ASPIRIN 81 MG CHEW TAB PO SCH (09:44)
[2017-06-15] MEDS: KETOROLAC TROMETHAMINE 30 MG/ML (IVP) VIAL IV PUSH PRN (09:44)
[2017-06-15] MEDS: DOCUSATE SODIUM 100 MG CAP PO SCH ×2 (09:45→21:08)
[2017-06-15] MEDS: CLOPIDOGREL 75 MG TAB PO SCH (09:45)
[2017-06-15] MEDS: POLYETHYLENE GLYCOL 17 GM PKG PO SCH (09:45)
[2017-06-15] MEDS: MAGNESIUM HYDROXIDE SUSP 30 ML CUP PO SCH (12:03)
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
[2017-06-15] MEDS ORDERED: PILL SPLITTER OTHER PRN (13:45)
[2017-06-15] MEDS: METOPROLOL TARTRATE 25 MG TAB PO SCH ×2 (15:26→21:08)
[2017-06-15] MEDS ORDERED: WARFARIN SOD 5 MG TAB PO SCH (16:00)
[2017-06-15] MEDS: SENNOSIDES 8.6 MG TAB PO SCH (21:08)
[2017-06-16] VITALS (21 sets, daily range): BP systolic 90–112; BP diastolic 51–64; PULSE 60–81; RESP 16–18; TEMP 97.8–99.7; O2SAT 94–98
--- NOTE | 2017-06-16 05:18 | RADRPT ---
EXAM DATE/TIME: 06/16/2017 03:26 [facility] COMPARISON: CHEST SINGLE AP, June 14, 2017, 4:23. INDICATIONS : Shortness of breath, possible pulmonary disease. MEDICAL HISTORY : Chronic obstructive pulmonary disease. SURGICAL HISTORY : TAVR ENCOUNTER: Subsequent ACUITY: 4 - 6 days PAIN SCORE: 0/10 LOCATION: Bilateral chest FINDINGS: Right neck central line is stable. Right thoracostomy tube and mediastinal drain have been removed. S light bibasilar parenchymal opacity persists unchanged. Cardiac contours are grossly stable. CONCLUSION: Thoracostomy tube removal without palpitation. Grossly stable aeration. Griffin Valentine MD on June 16, 2017 at 5:15 Board Certified Radiologist. This report was verified electronically.
[2017-06-16] MEDS: INSULIN ASPART SUPPLEMENTAL SCALE SQ SCH ×4 (08:00→20:34)
[2017-06-16] MEDS: CLOPIDOGREL 75 MG TAB PO SCH (08:38)
[2017-06-16] MEDS: METOPROLOL TARTRATE 25 MG TAB PO SCH ×2 (08:39→20:23)
[2017-06-16] MEDS: ASPIRIN 81 MG CHEW TAB PO SCH (08:39)
[2017-06-16] MEDS: MULTIVITAMINS/MINERALS THERAPEUTIC TAB PO SCH (08:39)
[2017-06-16] MEDS: DOCUSATE SODIUM 100 MG CAP PO SCH ×2 (08:41→20:23)
[2017-06-16] MEDS: POLYETHYLENE GLYCOL 17 GM PKG PO SCH (08:42)
[2017-06-16] MEDS: MAGNESIUM HYDROXIDE SUSP 30 ML CUP PO SCH (08:42)
[2017-06-16] MEDS: RESP: ALBUTEROL 2.5 MG/IPRATROPIUM 0.5 MG NEB (SCH) NEB (08:52)
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
[2017-06-16] MEDS: RESP: ALBUTEROL 2.5 MG/IPRATROPIUM 0.5 MG NEB (PRN) NEB (20:00)
[2017-06-16] MEDS: SODIUM CHLORIDE 0.9% FLUSH 10 ML FLUSH IV FLUSH PRN (20:23)
[2017-06-16] MEDS: SENNOSIDES 8.6 MG TAB PO SCH (20:23)
[2017-06-17] VITALS (27 sets, daily range): BP systolic 93–126; BP diastolic 51–67; PULSE 60–103; TEMP 98.5–100.4; O2SAT 93–98
[2017-06-17] MEDS: RESP: ALBUTEROL 2.5 MG/IPRATROPIUM 0.5 MG NEB (PRN) NEB (04:33)
[2017-06-17] MEDS: PANTOPRAZOLE SOD 40 MG DELAYED RELEASE TAB PO SCH (04:56)
[2017-06-17] MEDS: INSULIN ASPART SUPPLEMENTAL SCALE SQ SCH ×3 (08:00→17:00)
[2017-06-17] MEDS: METOPROLOL TARTRATE 25 MG TAB PO SCH ×2 (08:09→20:46)
[2017-06-17] MEDS: ASPIRIN 81 MG CHEW TAB PO SCH (08:10)
[2017-06-17] MEDS: DOCUSATE SODIUM 100 MG CAP PO SCH ×2 (08:10→20:46)
[2017-06-17] MEDS: MULTIVITAMINS/MINERALS THERAPEUTIC TAB PO SCH (08:10)
[2017-06-17] MEDS: CLOPIDOGREL 75 MG TAB PO SCH (08:11)
[2017-06-17] MEDS: POLYETHYLENE GLYCOL 17 GM PKG PO SCH (08:17)
[2017-06-17] MEDS: MAGNESIUM HYDROXIDE SUSP 30 ML CUP PO SCH (08:19)
[2017-06-17] MEDS ORDERED: PLAV75TA29 PO (09:42)
[2017-06-17] MEDS ORDERED: METO25TA3 PO (09:42)
[2017-06-17] MEDS ORDERED: DOCU1CAP39 PO (09:42)
[2017-06-17] MEDS ORDERED: ASPI81 PO (09:42)
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
[2017-06-17] MEDS: SODIUM CHLORIDE 0.9% FLUSH 10 ML FLUSH IV FLUSH PRN (20:46)
[2017-06-17] MEDS: SENNOSIDES 8.6 MG TAB PO SCH (20:46)
[2017-06-18] VITALS (14 sets, daily range): BP systolic 101–118; BP diastolic 56–64; PULSE 65–83; RESP 16–18; TEMP 98–98.9; O2SAT 95–96
[2017-06-18] MEDS: PANTOPRAZOLE SOD 40 MG DELAYED RELEASE TAB PO SCH (06:10)
[2017-06-18] MEDS: MULTIVITAMINS/MINERALS THERAPEUTIC TAB PO SCH (09:51)
[2017-06-18] MEDS: CLOPIDOGREL 75 MG TAB PO SCH (09:52)
[2017-06-18] MEDS: DOCUSATE SODIUM 100 MG CAP PO SCH (09:52)
[2017-06-18] MEDS: METOPROLOL TARTRATE 25 MG TAB PO SCH (09:52)
[2017-06-18] MEDS: POLYETHYLENE GLYCOL 17 GM PKG PO SCH (09:52)
[2017-06-18] MEDS: ASPIRIN 81 MG CHEW TAB PO SCH (09:52)
[2017-06-18] MEDS: MAGNESIUM HYDROXIDE SUSP 30 ML CUP PO SCH (09:52)
[2017-06-18] MEDS ORDERED: OXYC30TA PO (14:11)
[2017-06-18] MEDS ORDERED: AMBI5TAB PO (14:11)
== END 2017-06-18 13:30 | DRG 220 ==
LOC: HSDI 05:23 → HCVI 13:17 → HCPC 06-15 16:10
PROVIDERS: ADMIT Thoracic Surgery (Cardiothoracic Vascular Surgery); ATTEND Thoracic Surgery (Cardiothoracic Vascular Surgery)
PROC: 02BG0ZZ Excision of Mitral Valve, Open Approach (ICD-10-PCS; 2017-06-13)
PROC: 5A1221Z Performance of Cardiac Output, Continuous (ICD-10-PCS; 2017-06-13)
PROC: 3E0T3BZ Introduction of Anesthetic Agent into Peripheral Nerves and Plexi, Percutaneous Approach (ICD-10-PCS; 2017-06-13)
PROC: B246ZZ4 Ultrasonography of Right and Left Heart, Transesophageal (ICD-10-PCS; 2017-06-13)
PROC: 0W9930Z Drainage of Right Pleural Cavity with Drainage Device, Percutaneous Approach (ICD-10-PCS; 2017-06-13)
PROC: 02UG0JZ Supplement Mitral Valve with Synthetic Substitute, Open Approach (ICD-10-PCS; principal; 2017-06-13 07:21)
PROC: 02QG0ZZ Repair Mitral Valve, Open Approach (ICD-10-PCS; 2017-06-13 07:21)
DX: I34.0 Nonrheumatic mitral (valve) insufficiency (principal); F11.20 Opioid dependence, uncomplicated; G93.89 Other specified disorders of brain; J98.11 Atelectasis; I34.1 Nonrheumatic mitral (valve) prolapse; K21.9 Gastro-esophageal reflux disease without esophagitis; M54.2 Cervicalgia; M54.9 Dorsalgia, unspecified; G89.21 Chronic pain due to trauma
CPT/HCPCS: 71045; 76937; 80048; 82948; 83735; 85025; 85027; 85610; 86850; 86900; 86901; 86920; 93005; 93318; 94002; 94150; 94640; 94664; 94667; 94668; C1898; C9290; J0131; J0171; J1100; J1170; J1644; J1815; J1817; J1885; J1940; J2150; J2250; J2270; J2370; J2405; J2710; J2720; J3010; J3370; J3475; J3480; J7050; J7120; P9045

== ENCOUNTER 2017-07-15 10:36 | Emergency (ER) | payer OTHER, MEDICAID ==
[~2017-07-15] VITALS: Ht 167.6 cm; Wt 60.0 kg
[~2017-07-15 10:36] MED LIST changes: +AMBI5TAB PO; +ASPI81 PO; +DOCU1CAP39 PO; -IBUP-232 PO; +METO25TA3 PO; +PLAV75TA29 PO
[2017-07-15 10:45] VITALS: BP 122/67; PULSE 98; RESP 16; TEMP 98.9; O2SAT 99
[2017-07-15 10:55] VITALS: BP 112/81; PULSE 92; RESP 18; O2SAT 97
[2017-07-15 11:28] VITALS: RESP 16; O2SAT 95
[2017-07-15] MEDS ORDERED: SODIUM CHLORIDE 0.9% FLUSH 10 ML FLUSH IVF PRN (11:30)
[2017-07-15 11:51] LABS: AUTOMATED NEUTROPHIL # 6.5 TH/MM3 (1.8-7.7); BASOPHIL # 0.1 TH/MM3 (0-0.2); BASOPHIL % 0.6 % (0.0-2.0); EOSINOPHIL # 0.2 TH/MM3 (0-0.4); EOSINOPHIL % 1.8 % (0.0-4.0); HEMATOCRIT 41.1 % (39.0-51.0); HEMOGLOBIN 13.7 GM/DL (13.0-17.0); LYMPH % 20.1 % (9.0-44.0); LYMPHOCYTE # 1.9 TH/MM3 (1.0-4.8); MEAN CELL VOLUME 76.8 FL (80.0-100.0); MEAN CORPUSCULAR HEMOGLOBIN 25.5 PG (27.0-34.0); MEAN CORPUSCULAR HGB CONC 33.2 % (32.0-36.0); MEAN PLATELET VOLUME 8.7 FL (7.0-11.0); MONOCYTE # 0.9 TH/MM3 (0-0.9); NEUT % 68.5 % (16.0-70.0); PLATELET COUNT 338 TH/MM3 (150-450); RED BLOOD COUNT 5.36 MIL/MM3 (4.50-5.90); RED CELL DISTRIBUTION WIDTH 14.4 % (11.6-17.2); WHITE BLOOD COUNT 9.5 TH/MM3 (4.0-11.0)
--- NOTE | 2017-07-15 12:13 | RADRPT ---
EXAM DATE: 07/15/2017 12:05 PM EDT AGE/SEX: 61 years / Male INDICATIONS: Chest Pain CLINICAL DATA: This is the patient's initial encounter. Patient reports that signs and symptoms have been present for 1 day and indicates a pain score of 5/10. MEDICAL/SURGICAL HISTORY: . Mitral Valve Prolapse . MVP repair [place] [facility] [place]. . FINDINGS: A single AP view of the chest demonstrates the lungs to be symmetrically aerated without evidence of mass, infiltrate or effusion. The cardiomediastinal contours are unremarkable. Osseous structures a re intact. CONCLUSION: Negative examination. Electronically signed by: Rosemary Tee MD 07/15/2017 12:11 PM EDT
[2017-07-15 12:17] LABS: ALBUMIN 3.8 GM/DL (3.4-5.0); AST (GOT) 16 U/L (15-37); BLOOD UREA NITROGEN 14 MG/DL (7-18); CHLORIDE 104 MEQ/L (98-107); GLOMERULAR FILTRATION RATE 76 ML/MIN (>89); GLUCOSE,RANDOM 91 MG/DL (74-106); SODIUM (NA) 140 MEQ/L (136-145)
[2017-07-15 12:22] LABS: ALKALINE PHOSPHATASE 88 U/L (45-117); ALT (GPT) 30 U/L (12-78); TOTAL BILIRUBIN ADULT 0.5 MG/DL (0.2-1.0); TOTAL PROTEIN 7.5 GM/DL (6.4-8.2); TROPONIN I LESS THAN 0.02 NG/ML (0.02-0.05)
[2017-07-15 13:00] VITALS: BP 139/70; PULSE 96; RESP 14; O2SAT 98
--- NOTE | 2017-07-15 13:32 | PD ---
HPI Chief Complaint: Chest Pain Time Seen by Provider: 10:53 Travel History International Travel<30 days: No Contact w/Intl Traveler<30days: No Traveled to known affect area: No History of Present Illness HPI Patient is a 61 year old male who comes in complaining of problems with his blood pressure. He says he does not understand why his blood pressure gets low and his pulse goes up. He says when this happens, he feels dizzy. He has recently had mitral valve replacement surgery and was started on a beta mauro. He says he has 3 different doctors all telling him different things and he doesn't know what to do. He denies any chest pain or SOB. He denies fever or chills. He denies headache or blurred vision. Severity is mild to moderate. PFSH Past Medical History Arthritis: Yes Cancer: No Cardiovascular Problems: Yes (mvp) Diabetes: No Diminished Hearing: No Endocrine: No Hepatitis: No Hiatal Hernia: Yes Hypertension: Yes Immune Disorder: No Musculoskeletal: Yes (broke back, skull, and neck in 89) Neurologic: Yes (tingling in feet and hands, cyst back in skull) Thyroid Disease: No Tetanus Vaccination: < 5 Years Past Surgical History Abdominal Surgery: Yes (inguinal hernia repair x2) AICD: No Cardiac Surgery: Yes Ear Surgery: No Endocrine Surgery: No Eye Surgery: No Genitourinary Surgery: No Gynecologic Surgery: No Joint Replacement: No Oral Surgery: No Pacemaker: No Thoracic Surgery: No Social History Alcohol Use: No Tobacco Use: No Substance Use: No Allergies-Medications (Allergen,Severity, Reaction): Coded Allergies: penicillin G (Verified Allergy, Severe, HIVES, 07/15/17) Reported Meds & Prescriptions Reported Meds & Active Scripts Active Ambien (Zolpidem Tartrate) 5 Mg Tab 5 Mg PO HS PRN Dok (Docusate Sodium) 100 Mg Cap 100 Mg PO BID 30 Days Tgt Aspirin (Aspirin) 81 Mg Chw 81 Mg PO DAILY 90 Days Metoprolol Tartrate 25 Mg Tab 12.5 Mg PO Q12HR Plavix (Clopidogrel Bisulfate) 75 Mg Tab 75 Mg PO DAILY 90 Days Reported Singulair (Montelukast Sodium) 10 Mg Tab 10 Mg PO HS Zanaflex (Tizanidine HCl) 4 Mg Cap 4 Mg PO BID Oxycodone (Oxycodone HCl) 30 Mg Tab 30 Mg PO Q8H PRN Omeprazole 40 Mg Cap 40 Mg PO DAILY Ambien (Zolpidem Tartrate) 10 Mg Tab 10 Mg PO HS PRN Review of Systems Except as stated in HPI: all other systems reviewed are Neg General / Constitutional: No: Fever, Chills Eyes: No: Blurred Vision HENT: Positive: Lightheadedness, No: Headaches Cardiovascular: No: Chest Pain or Discomfort Respiratory: No: Shortness of Breath Gastrointestinal: No: Nausea, Vomiting Musculoskeletal: No: Myalgias, Edema Skin: No Rash, No Change in Pigmentation Neurologic: Positive: Dizziness, No: Weakness Physical Exam Narrative GENERAL: Awake and alert, in no acute distress. SKIN: Focused skin assessment warm/dry. HEAD: Atraumatic. Normocephalic. EYES: Pupils equal and round. No scleral icterus. EOMI. ENT: Mucous membranes pink and moist. NECK: Trachea midline. No JVD. CARDIOVASCULAR: Regular rate and rhythm. No murmur appreciated. RESPIRATORY: No accessory muscle use. Clear to auscultation. Breath sounds equal bilaterally. GASTROINTESTINAL: Abdomen soft, non-tender, nondistended. MUSCULOSKELETAL: No obvious deformities. No clubbing. No cyanosis. No edema. NEUROLOGICAL: Awake and alert. No obvious cranial nerve deficits. Motor grossly within normal limits. Normal speech. PSYCHIATRIC: Appropriate mood and affect; insight and judgment normal. Data Data Last Documented VS Vital Signs Date Time Temp Pulse Resp B/P (MAP) Pulse Ox O2 Delivery O2 Flow Rate FiO2 07/15/17 14:02 07/15/17 13:00 96 14 98 Room Air 07/15/17 10:45 98.9 Orders Orders Electrocardiogram (07/15/17 11:21) Ckmb (Isoenzyme) Profile (07/15/17 11:21) Complete Blood Count With Diff (07/15/17 11:21) Comprehensive Metabolic Panel (07/15/17 11:21) Prothrombin Time / Inr (Pt) (07/15/17 11:21) Act Partial Throm Time (Ptt) (07/15/17 11:21) Troponin I (07/15/17 11:21) Chest, Single Ap (07/15/17 11:21) Ecg Monitoring (07/15/17 11:21) Bilateral Bp Monitoring (07/15/17 11:21) Iv Access Insert/Monitor (07/15/17 11:21) Oximetry (07/15/17 11:21) Oxygen Administration (07/15/17 11:21) Sodium Chloride 0.9% Flush (Ns Flush) (07/15/17 11:30) Ed Discharge Order (07/15/17 13:32) Labs Laboratory Tests Test 07/15/17 11:29 White Blood Count 9.5 TH/MM3 Red Blood Count 5.36 MIL/MM3 Hemoglobin 13.7 GM/DL Hematocrit 41.1 % Mean Corpuscular Volume 76.8 FL Mean Corpuscular Hemoglobin 25.5 PG Mean Corpuscular Hemoglobin Concent 33.2 % Red Cell Distribution Width 14.4 % Platelet Count 338 TH/MM3 Mean Platelet Volume 8.7 FL Neutrophils (%) (Auto) 68.5 % Lymphocytes (%) (Auto) 20.1 % Monocytes (%) (Auto) 9.0 % Eosinophils (%) (Auto) 1.8 % Basophils (%) (Auto) 0.6 % Neutrophils # (Auto) 6.5 TH/MM3 Lymphocytes # (Auto) 1.9 TH/MM3 Monocytes # (Auto) 0.9 TH/MM3 Eosinophils # (Auto) 0.2 TH/MM3 Basophils # (Auto) 0.1 TH/MM3 CBC Comment DIFF FINAL Differential Comment Prothrombin Time 10.0 SEC Prothromb Time International Ratio 1.0 RATIO Activated Partial Thromboplast Time 24.6 SEC Blood Urea Nitrogen 14 MG/DL Creatinine 1.00 MG/DL Random Glucose 91 MG/DL Total Protein 7.5 GM/DL Albumin 3.8 GM/DL Calcium Level 9.0 MG/DL Alkaline Phosphatase 88 U/L Aspartate Amino Transf (AST/SGOT) 16 U/L Alanine Aminotransferase (ALT/SGPT) 30 U/L Total Bilirubin 0.5 MG/DL Sodium Level 140 MEQ/L Potassium Level 4.6 MEQ/L Chloride Level 104 MEQ/L Carbon Dioxide Level 26.0 MEQ/L Anion Gap 10 MEQ/L Estimat Glomerular Filtration Rate 76 ML/MIN Total Creatine Kinase 52 U/L Troponin I LESS THAN 0.02 NG/ML MDM Medical Decision Making Medical Screen Exam Complete: Yes Emergency Medical Condition: Yes Medical Record Reviewed: Yes Interpretation(s) ECG shows NSR, no ST elevation or depression, normal intervals Differential Diagnosis electrolyte abnormalities vs dehydration vs dysrhythmia Narrative Course Patient is a 61 year old male who comes in complaining of dizziness and confusion over his blood pressure. Exam shows no acute abnormalities. IV established, labs sent. Labs show no acute abnormalities. I looked through the patient's BP monitor at his readings. His BP seems to drop when taking Metoprolol, into the 90s systolic, causing his dizziness. He is advised to hold this medication and follow up with his mental health tech as soon as possible. Advised to return any time for any worsening symptoms. Diagnosis Primary Impression: Dizziness Additional Impression: Blood pressure decreased Patient Instructions: General Instructions, Hypotension (ED) Additional Instructions: Follow-up with your doctors. Increase her fluid intake. Return to the ED as needed for any worsening symptoms. Disposition: 01 DISCHARGE HOME Condition: Stable Geetha Boone MD Jul 15, 2017 13:32
--- NOTE | 2017-07-15 17:00 | EKG ---
Date Performed: 07/15/2017 Time Performed: 10:54:00 PTAGE: 61 years EKG: Sinus rhythm POSSIBLE LEFT ATRIAL ENLARGEMENT Compared to previous tracing, rhythm has changed from atrial fibril lation to sinus rhythm BORDERLINE ECG PREVIOUS TRACING : 06/14/2017 06.36 DOCTOR: Giovanyn Talavera Interpretating Date/Time 07/15/2017 16:58:06
== END 2017-07-15 14:07 | disposition home or self-care (01) ==
LOC: NEPE 10:36
DX: R42 Dizziness and giddiness (principal); M19.90 Unspecified osteoarthritis, unspecified site; I10 Essential (primary) hypertension; Z95.4 Presence of other heart-valve replacement; Z88.0 Allergy status to penicillin; Z79.02 Long term (current) use of antithrombotics/antiplatelets; Z79.899 Other long term (current) drug therapy; Z79.82 Long term (current) use of aspirin
CPT/HCPCS: 71045; 80053; 82550; 84484; 85025; 85610; 85730; 93005

== ENCOUNTER 2017-09-01 18:37 | Observation (INO) ==
[2017-09-01 18:44] VITALS: TEMP 98.3
--- NOTE | 2017-09-01 20:42 | ED ---
HPI General Chief Complaint: Chest Pain Stated Complaint: Chest pain/post op Time Seen by Provider: 09/01/17 20:24 Source: patient Mode of arrival: ambulatory Limitations: no limitations History of Present Illness HPI narrative: Patient is a 61-year-old male with history of recent mitral valve repair by Dr. Marie on June 16, 2017 as well as chronic pain; presents to the ER with complaints of chest pain and shortness of breath. Patient reports that today, he was at home and began to have chest pain. Patient reports that it felt like he is having a sharp and stabbing pain to his substernal chest. Patient reports that chest pain began while he was "doing nothing." Patient reports that he had just finished eating. Patient denies any nausea or vomiting with the symptoms, reports he did feel dizzy. Patient reports that his chest pain lasted for a few hours and has currently resolved. Patient complaining of shortness of breath at this time. Patient reports that he gets so short of breath, he ends up "yawning." Reports that this is new for him. Patient with no diaphoresis with this chest pain, patient denies any history of coronary artery disease, denies history of hypertension or hyperlipidemia, reports that he is due to see Dr. Marie in the office next week. Complete Quality Measures for STEMI Alert Patients Related Data Home Medications Medication Instructions Recorded Confirmed oxycodone 30 mg PO Q4-6H PRN 08/26/17 09/01/17 aspirin 81 mg PO DAILY 08/30/17 09/01/17 omeprazole 40 mg PO DAILY 08/30/17 09/01/17 Allergies Allergy/AdvReac Type Severity Reaction Status Date / Time penicillin G Allergy Severe HIVES Verified 08/30/17 19:45 Review of Systems Except as stated in HPI: all other systems reviewed are negative [facility] Medical History Medical History Marti esophagus (Acute) Chronic neck and back pain (Acute) Ganglion cyst of dorsum of left wrist (Acute) Mitral valve disorder (Acute) Surgical History Surgical History H/O mitral valve repair (Acute) Social History Social History Substance History: Past History Second Hand Smoke Exposure: No Smoking Status: Former smoker Tobacco Type: Cigarettes How Often Do You Have a Drink Containing Alcohol: Monthly or less Recent Travel in [facility] within the Last 8 Weeks: No Recent Out of Country Travel within the Last 8 Weeks: No Substance Abuse Detail Marijuana: Route Used Substance Abuse: Inhalation Immunization History Tetanus Immunization: >5 Years Hx Influenza Vaccine This Season: No Exam Narrative Exam Narrative: GENERAL: Mild distrss SKIN: Focused skin assessment warm/dry. HEAD: Atraumatic. Normocephalic. EYES: Pupils equal and round. No scleral icterus. No injection or drainage. ENT: No nasal bleeding or discharge. Mucous membranes pink and moist. NECK: Trachea midline. No JVD. CARDIOVASCULAR: Regular rate and rhythm. No murmur appreciated. RESPIRATORY: No accessory muscle use. Clear to auscultation. Breath sounds equal bilaterally. GASTROINTESTINAL: Abdomen soft, non-tender, nondistended. Hepatic and splenic margins not palpable. MUSCULOSKELETAL: No obvious deformities. No clubbing. No cyanosis. No edema. NEUROLOGICAL: Awake and alert. No obvious cranial nerve deficits. Motor grossly within normal limits. Normal speech. PSYCHIATRIC: Appropriate mood and affect; insight and judgment normal. Course Initial Documented Vital Signs Temperature 98.3 F 09/01/17 18:42 Pulse Rate 86 09/01/17 18:42 Respiratory Rate 20 09/01/17 18:42 Blood Pressure 125/60 09/01/17 18:42 Pulse Oximetry 98 09/01/17 18:42 Last Documented Vital Signs Temperature 98.3 F 09/01/17 18:42 Pulse Rate 86 09/01/17 18:42 Respiratory Rate 20 09/01/17 18:42 Blood Pressure 125/60 09/01/17 18:42 Pulse Oximetry 98 09/01/17 21:06 Medical Decision Making MDM Narrative Medical decision making narrative: During the course of the patients emergency department visit, the patients history, examination, and differential diagnosis were reviewed with the patient. The patient was placed on a site monitor with oximetry and frequent blood pressure monitoring. The patient had an IV access obtained and blood work sent for analysis. The patient was initially provided aspirin for his chest pain which has resolved The patients laboratory studies were reviewed . Radiology studies were reviewed = patient with no PE, first set of CE was neg, will obs to chest pain unit for serial trops Lab Data Lab results reviewed: Yes I reviewed the patient's lab results. Result diagrams: 07/21/18 20:47 09/01/17 20:47 Lab Results 09/01/17 09/01/17 09/01/17 Range/Units 20:47 20:47 20:47 WBC 16.0 H (4.0-11.0) th/mm3 RBC 5.54 (4.50-5.90) mil/mm3 Hgb 14.0 (13.0-17.0) gm/dL Hct 42.1 (39.0-51.0) % MCV 76.1 L (80.0-100.0) fL MCH 25.3 L (27.0-34.0) pg MCHC 33.3 (32.0-36.0) % RDW 15.6 (11.6-17.2) % Plt Count 334 (150-450) th/mm3 MPV 9.2 (7.0-11.0) fL Neut % (Auto) 76.8 H (16.0-70.0) % Lymph % (Auto) 13.3 (9.0-44.0) % [place] % (Auto) 8.7 H (0.0-8.0) % Eos % (Auto) 0.7 (0.0-4.0) % Baso % (Auto) 0.5 (0.0-2.0) % Neut # (Auto) 12.3 H (1.8-7.7) th/mm3 Lymph # (Auto) 2.1 (1.0-4.8) th/mm3 [place] # (Auto) 1.4 H (0.0-0.9) th/mm3 Eos # (Auto) 0.1 (0.0-0.4) th/mm3 Baso # (Auto) 0.1 (0.0-0.2) th/mm3 WBC Differential . Differential Comment Auto diff final PT 9.8 (9.8-11.6) sec INR 1.0 Ratio APTT 25.7 (24.3-30.1) sec D-Dimer Quant (PE/DVT) 0.64 H (0.00-0.50) mg/L FEU Sodium 139 (136-145) meq/L Potassium 4.7 (3.5-5.1) meq/L Chloride 103 (98-107) meq/L Carbon Dioxide 25.6 (21.0-32.0) meq/L Anion Gap 10 (5-15) meq/L BUN 15 (7-18) mg/dL Creatinine 1.18 (0.60-1.30) mg/dL Estimated GFR 63 L (>89) mL/min Random Glucose 97 (74-106) mg/dL Calcium 9.1 (8.5-10.1) mg/dL Total Bilirubin 0.7 (0.2-1.0) mg/dL AST 21 (15-37) U/L ALT 22 (12-78) U/L Alkaline Phosphatase 86 (45-117) U/L Total Creatine Kinase 77 (39-308) U/L Troponin I Less than 0.02 L (0.02-0.05) ng/mL B-Natriuretic Peptide (0-100) pg/mL Total Protein 7.6 D (6.4-8.2) g/dL Albumin 3.8 (3.4-5.0) g/dL 09/01/17 Range/Units 20:47 WBC (4.0-11.0) th/mm3 RBC (4.50-5.90) mil/mm3 Hgb (13.0-17.0) gm/dL Hct (39.0-51.0) % MCV (80.0-100.0) fL MCH (27.0-34.0) pg MCHC (32.0-36.0) % RDW (11.6-17.2) % Plt Count (150-450) th/mm3 MPV (7.0-11.0) fL Neut % (Auto) (16.0-70.0) % Lymph % (Auto) (9.0-44.0) % [place] % (Auto) (0.0-8.0) % Eos % (Auto) (0.0-4.0) % Baso % (Auto) (0.0-2.0) % Neut # (Auto) (1.8-7.7) th/mm3 Lymph # (Auto) (1.0-4.8) th/mm3 [place] # (Auto) (0.0-0.9) th/mm3 Eos # (Auto) (0.0-0.4) th/mm3 Baso # (Auto) (0.0-0.2) th/mm3 WBC Differential Differential Comment PT (9.8-11.6) sec INR Ratio APTT (24.3-30.1) sec D-Dimer Quant (PE/DVT) (0.00-0.50) mg/L FEU Sodium (136-145) meq/L Potassium (3.5-5.1) meq/L Chloride (98-107) meq/L Carbon Dioxide (21.0-32.0) meq/L Anion Gap (5-15) meq/L BUN (7-18) mg/dL Creatinine (0.60-1.30) mg/dL Estimated GFR (>89) mL/min Random Glucose (74-106) mg/dL Calcium (8.5-10.1) mg/dL Total Bilirubin (0.2-1.0) mg/dL AST (15-37) U/L ALT (12-78) U/L Alkaline Phosphatase (45-117) U/L Total Creatine Kinase (39-308) U/L Troponin I (0.02-0.05) ng/mL B-Natriuretic Peptide 38 (0-100) pg/mL Total Protein (6.4-8.2) g/dL Albumin (3.4-5.0) g/dL Imaging Data Attestation: I personally reviewed and interpreted this imaging study as follows : Radiologist's impression: Chest X-Ray 09/01/17 20:34 CONCLUSION: No acute cardiopulmonary disease. Chest CTA 09/01/17 21:44 CONCLUSION: 1. No evidence of pulmonary emboli. The lungs are clear. 2. Mitral valve prosthesis in place. ECG Data EKG Prior to Arrival: No Attestation: I personally reviewed and interpreted this ECG as follows: Prior ECG tracings: available for review Interpretation: EKG at 1857: NSR at 89bpm, qt/qtc: 337/383, incomplete rbbb, no change from prior ekg from 08/30/17 Discharge Plan Discharge Disposition Patient Disposition: 30 Still Patient Physicians Team ED Provider: Jessica Lowery Primary Care Provider: Wilver Armenta Rxs /Orders / Referrals /Forms Prescriptions: No Action omeprazole 40 mg Capsule,Delayed Release(Dr/Ec) 40 mg PO DAILY RF: 0 aspirin 81 mg Tablet,Chewable 81 mg PO DAILY RF: 0 oxycodone 15 mg Tablet 30 mg PO Q4-6H PRN (Reason: Pain) RF: 0 Discharge Instructions Patient Printed Instructions: Chest Pain (ED) Status ED Status: With Doctor
[2017-09-01 21:08] LABS: Baso # (Auto) 0.1 th/mm3 (0.0-0.2); Baso % (Auto) 0.5 % (0.0-2.0); Eos # (Auto) 0.1 th/mm3 (0.0-0.4); Eos % (Auto) 0.7 % (0.0-4.0); Hematocrit 42.1 % (39.0-51.0); Lymph # (Auto) 2.1 th/mm3 (1.0-4.8); Lymph % (Auto) 13.3 % (9.0-44.0); Mean Corpuscular HGB Conc 33.3 % (32.0-36.0); Mean Corpuscular Hemoglobin 25.3 pg (27.0-34.0); Mean Corpuscular Volume 76.1 fL (80.0-100.0); Mean Platelet Volume 9.2 fL (7.0-11.0); Mono # (Auto) 1.4 th/mm3 (0.0-0.9); Mono % (Auto) 8.7 % (0.0-8.0); Neut # (Auto) 12.3 th/mm3 (1.8-7.7); Neut % (Auto) 76.8 % (16.0-70.0); Platelet Count 334 th/mm3 (150-450); Red Blood Count 5.54 mil/mm3 (4.50-5.90); Red Cell Distribution Width 15.6 % (11.6-17.2)
--- NOTE | 2017-09-01 21:19 | XR ---
EXAM DATE: 09/01/2017 9:13 PM EDT AGE/SEX: 61 years / Male INDICATIONS: Chest pain. CLINICAL DATA: This is the patient's initial encounter. Patient reports that signs and symptoms have been present for 1 day and indicates a pain score of 7/10. MEDICAL/SURGICAL HISTORY: . Mitral Valve Prolapse. . Mitral valve repair. COMPARISON: [facility] [place], CHEST 1V SINGLE AP, 08/30/2017. . FINDINGS: A single AP view of the chest demonstrates the lungs to be symmetrically aerated without evidence of mass, infiltrate or effusion. A mitral valve prosthesis is noted. The cardiomediastinal contours are unremarkable. Osseous structures are intact. CONCLUSION: No acute cardiopulmonary disease. Electronically signed by: Luis Lobato MD 09/01/2017 9:17 PM EDT
[2017-09-01 21:24] LABS: Prothrombin Time 9.8 sec (9.8-11.6)
[2017-09-01 21:25] LABS: Alanine Aminotransferase 22 U/L (12-78)
[2017-09-01 21:27] LABS: Activated Partial Thrombo Time 25.7 sec (24.3-30.1); Albumin 3.8 g/dL (3.4-5.0); Anion Gap 10 meq/L (5-15); Aspartate Aminotransferase 21 U/L (15-37); Blood Urea Nitrogen 15 mg/dL (7-18); Calcium 9.1 mg/dL (8.5-10.1); Carbon Dioxide 25.6 meq/L (21.0-32.0); Chloride 103 meq/L (98-107); D-Dimer 0.64 mg/L FEU (0.00-0.50); Glomerular Filtration Rate 63 mL/min (>89); Glucose,Random 97 mg/dL (74-106); Sodium 139 meq/L (136-145)
[2017-09-01 21:28] LABS: Potassium 4.7 meq/L (3.5-5.1)
[2017-09-01 21:51] LABS: Alkaline Phosphatase 86 U/L (45-117); Creatine Kinase 77 U/L (39-308); Total Protein 7.6 g/dL (6.4-8.2)
--- NOTE | 2017-09-01 22:49 | CT ---
EXAM DATE: 09/01/2017 10:43 PM EDT AGE/SEX: 61 years / Male INDICATIONS: Chest pain with shortness of breath. Mitral valve repair 4 weeks ago. Elevated D-Dimer. CLINICAL DATA: This is the patient's initial encounter. Patient reports that signs and symptoms have been present for 1 day and indicates a pain score of 6/10. MEDICAL/SURGICAL HISTORY: Cardiovascular disease. . Mitral valve repair RADIATION DOSE: 11.92 CTDI (mGy) COMPARISON: No prior exams available for comparison. TECHNIQUE: Volumetric scanning was performed using a multi-row detector CT scanner during bolus infu shannon of 70 ml Omnipaque 350 (iohexol) nonionic water-soluble contrast as a single exam dose. The christina a was post processed with a variety of visualization algorithms including full volume maximum intensi ty projection and sliding thin slab reformation. Using automated exposure control and adjustment of t he mA and/or kV according to patient size, radiation dose was kept as low as reasonably achievable to obtain optimal diagnostic quality images. DICOM format image data is available electronically for r eview and comparison. FINDINGS: Pulmonary Arteries: No filling defects are seen in the pulmonary arteries out to the subsegmental ve ssels. The left and right pulmonary arteries are normal in diameter. Lung: No infiltrates seen. Effusion: None. Mediastinum: No evidence of mediastinal or hilar adenopathy. Mitral valve prosthesis is noted. Other: The axilla is unremarkable. CONCLUSION: 1. No evidence of pulmonary emboli. The lungs are clear. 2. Mitral valve prosthesis in place. Electronically signed by: Luis Lobato MD 09/01/2017 10:48 PM EDT
[2017-09-02 01:30] LABS: Creatine Kinase 90 U/L (39-308)
[2017-09-02 03:45] LABS: Creatine Kinase 39 U/L (39-308)
[2017-09-02 08:43] VITALS: RESP 16
--- NOTE | 2017-09-02 09:44 | P.HPCA ---
History of Present Illness Primary Care Physician: Wilver Armenta MD Chief Complaint: Chest pain History of Present Illness: This is a 61-year-old male with history of recent mitral valve repair and ring June 2017 presents to ED with complaint of a central chest discomfort began yesterday. States she is doing nothing when it occurred. It recurred for 5 times each lasting 30 seconds or less. He was short of breath with the symptoms. Denies nausea or diaphoresis. He states he does not feel similar to his symptoms that led to his mitral valve repair. He was unable to continue on Plavix. States it was making very weak discussed with his prescription clerk and is currently taking a baby aspirin daily. States that he has not followed up with his cardiovascular thoracic surgeon but he has an appointment with Dr. Marie in 2 days. Denies recent illness. Denies fevers or chills. Prior to having the mitral valve repair, he had a cardiac catheterization that did not reveal significant coronary artery disease. He has seen Dr. Du a couple times in follow-up. Mitral valve repair with ring June 2017. Cardiac catheterization revealing no significant disease May 2017. Patient quit smoking 15 years ago but prior that he smoked on average 1 pack of cigarettes daily for 30 years. Denies family history of CAD. - Diagnosis (1) Chest pain (2) History of mitral valve repair (3) Chronic neck and back pain (4) COPD (chronic obstructive pulmonary disease) (5) History of Marti's esophagus Review of Systems General: Patient denies fevers, chills, and recent travel. HEENT: Patient denies headache, sore throat, difficulty swallowing. Cardiovascular: Has the chest discomfort as mentioned above. Denies sensation of heart beating rapidly or irregularly. No syncope. Denies diaphoresis. Respiratory: He was short of breath. Denies inspirational chest discomfort. Denies coughing wheezing or hemoptysis. GI: Patient denies nausea, vomiting, diarrhea, abdominal pain, bloody stools. Musculoskeletal: Patient denies joint pain or edema. Denies calf pain or edema. Neurovascular: Patient denies numbness, tingling, weakness in extremities. Denies headache. Endocrine: Denies polyuria and polydipsia. Hematologic: Denies easy bruising. Skin: Denies rash or itching. PMFSH - History History Provided By: Patient - Medical History Medical History: Medical History (Last Reviewed 09/01/17 @ 20:43 by Jessica Lowery) Marti esophagus Chronic neck and back pain Ganglion cyst of dorsum of left wrist Mitral valve disorder - Surgical History Surgical History: Surgical History (Last Reviewed 09/01/17 @ 20:43 by Jessica Lowery) H/O mitral valve repair - Tobacco History Second Hand Smoke Exposure: No Smoking Status: Former smoker Tobacco Type: Cigarettes - Alcohol History How Often Do You Have a Drink Containing Alcohol: Never - Substance Use History Substance History: Past History - Substance Use Type Marijuana Route Used: Inhalation - Travel History Recent Travel in the [place] Within the Last 8 Weeks: No Recent Travel Out of the Country Within the Last 8 Weeks: No - Immunization History Tetanus Immunization: >5 Years Hx Influenza Vaccine This Season: No Medications and Allergies Active Medications: Active Medications Aspirin (Aspirin Chew) 81 mg PO DAILY MARTINA Pantoprazole Sodium (Protonix) 40 mg PO DAILY MARTINA Sodium Chloride (Ns Flush) 2 ml IV.FLUSH UNSCH PRN PRN Reason: FLUSH AFTER USING IV ACCESS Allergies Allergy/AdvReac Type Severity Reaction Status Date / Time penicillin G Allergy Severe HIVES Verified 08/30/17 19:45 Home Medications Medication Instructions Recorded Confirmed Type oxycodone 30 mg PO Q4-6H PRN 08/26/17 09/01/17 History aspirin 81 mg PO DAILY 08/30/17 09/01/17 History omeprazole 40 mg PO DAILY 08/30/17 09/01/17 History Exam Vital signs: Vital Signs 09/01/17 18:42 09/01/17 21:06 09/02/17 02:07 Temperature 98.3 F Pulse Rate 86 Respiratory Rate 20 Blood Pressure 125/60 Pulse Oximetry 98 98 98 09/02/17 05:34 09/02/17 07:40 09/02/17 07:47 Temperature Pulse Rate 95 H 85 Respiratory Rate Blood Pressure Pulse Oximetry 98 09/02/17 08:42 Temperature 98.3 F Pulse Rate 66 Respiratory Rate 16 Blood Pressure 120/68 Pulse Oximetry 97 Intake & Output 09/01/17 09/02/17 09/02/17 18:59 06:59 18:59 Weight 61.235 kg Other: # Voids 2 Narrative: GENERAL: This is a well-nourished, well-developed patient, in no apparent distress. Patient speaks in clear complete sentences. Patient is pleasant. HEENT: Head is atraumatic and normocephalic. Neck is supple without lymphadenopathy and trachea is midline. No JVD or carotid bruits. CARDIOVASCULAR: Regular rate and rhythm without murmurs, gallops, or rubs. RESPIRATORY: Clear to auscultation. Breath sounds equal bilaterally. No wheezes , rales, or rhonchi. There is a well-healed scar right axillary region thoracotomy for the repair of the mitral valve. Chest wall is nontender. No use of accessory muscles. GASTROINTESTINAL: Abdomen is nontender, nondistended. Abdomen soft. No obvious pulsatile mass or bruit. No CVA tenderness. Strong femoral pulses bilaterally. Normal bowel sounds in all quadrants. MUSCULOSKELETAL: Patient is moving upper and lower extremities freely. No calf tenderness or edema, no Homans sign. Strong pulses in upper and lower extremities. NEUROLOGICAL: Patient is alert and oriented. Cranial nerves 2-12 are grossly intact. No focal deficits and speech is clear. SKIN: No rash and turgor is normal. Results 09/01/17 20:47 09/01/17 20:47 Cardiac Enzymes 09/01/17 09/01/17 09/02/17 Range/Units 20:47 20:47 00:25 AST 21 (15-37) U/L Troponin I Less than 0.02 L Less than 0.02 L (0.02-0.05) ng/mL B-Natriuretic Peptide 38 (0-100) pg/mL 09/02/17 Range/Units 02:55 AST (15-37) U/L Troponin I Less than 0.02 L (0.02-0.05) ng/mL B-Natriuretic Peptide (0-100) pg/mL Coagulation 09/01/17 09/01/17 Range/Units 20:47 20:47 PT 9.8 (9.8-11.6) sec APTT 25.7 (24.3-30.1) sec B-Natriuretic Peptide 38 (0-100) pg/mL CBC 09/01/17 Range/Units 20:47 WBC 16.0 H (4.0-11.0) th/mm3 RBC 5.54 (4.50-5.90) mil/mm3 Hgb 14.0 (13.0-17.0) gm/dL Hct 42.1 (39.0-51.0) % Plt Count 334 (150-450) th/mm3 Neut # (Auto) 12.3 H (1.8-7.7) th/mm3 Lymph # (Auto) 2.1 (1.0-4.8) th/mm3 [place] # (Auto) 1.4 H (0.0-0.9) th/mm3 Eos # (Auto) 0.1 (0.0-0.4) th/mm3 Baso # (Auto) 0.1 (0.0-0.2) th/mm3 Comprehensive Metabolic Panel 09/01/17 Range/Units 20:47 Sodium 139 (136-145) meq/L Potassium 4.7 (3.5-5.1) meq/L Chloride 103 (98-107) meq/L Carbon Dioxide 25.6 (21.0-32.0) meq/L BUN 15 (7-18) mg/dL Creatinine 1.18 (0.60-1.30) mg/dL Calcium 9.1 (8.5-10.1) mg/dL AST 21 (15-37) U/L ALT 22 (12-78) U/L Alkaline Phosphatase 86 (45-117) U/L Total Protein 7.6 D (6.4-8.2) g/dL Albumin 3.8 (3.4-5.0) g/dL Intake and Output 09/01/17 09/02/17 09/02/17 22:59 06:59 14:59 Other: # Voids 2 Weight 61.235 kg EKG interpretations - EKG EKG shows: sinus rhythm (EKGs in sinus rhythm with incomplete right bundle branch block and occasional PVCs. No significant ST segment depressions) Caprini VTE Risk Assessment Caprini VTE Risk Assessment: Moderate/High Risk (score >= 2) Caprini Risk Assessment Model: Point Value = 1 Point Value = 2 Point Value = 3 Point Value = 5 Age 41-60 Minor surgery BMI > 25 kg/m2 Swollen legs Varicose veins or History of unexplained or recurrent spontaneous Oral contraceptives or hormone replacement Sepsis (< 1 month) Serious lung disease, including pneumonia (< 1 month) Abnormal pulmonary function Acute myocardial infarction Congestive heart failure (< 1 month) History of inflammatory bowel disease Medical patient at bed rest Age 61-74 Arthroscopic surgery Major open surgery (> 45 min) Laparoscopic surgery (> 45 min) Malignancy Confined to bed (> 72 hours) Immobilizing plaster cast Central venous access Age >= 75 History of VTE Family history of VTE Factor V Leiden Prothrombin [id number] Lupus anticoagulant Anticardiolipin antibodies Elevated serum homocysteine Heparin-induced thrombocytopenia Other congenital or acquired thrombophilia Stroke (< 1 month) Elective arthroplasty Hip, pelvis, or leg fracture Acute spinal cord injury (< 1 month) Prophylaxis Regimen: Total Risk Factor Score Risk Level Prophylaxis Regimen 0-1 Low Early ambulation 2 Moderate Order ONE of the following: *Sequential Compression Device (SCD) *Heparin 5000 units SQ BID 3-4 Higher Order ONE of the following medications: *Heparin 5000 units SQ TID *Enoxaparin/Lovenox 40 mg SQ daily (WT < 150 kg, CrCl > 30 mL/min) *Enoxaparin/Lovenox 30 mg SQ daily (WT < 150 kg, CrCl > 10-29 mL/min) *Enoxaparin/Lovenox 30 mg SQ BID (WT < 150 kg, CrCl > 30 mL/min) AND/OR *Sequential Compression Device (SCD) 5 or more Highest Order ONE of the following medications: *Heparin 5000 units SQ TID (Preferred with Epidurals) *Enoxaparin/Lovenox 40 mg SQ daily (WT < 150 kg, CrCl > 30 mL/min) *Enoxaparin/Lovenox 30 mg SQ daily (WT < 150 kg, CrCl > 10-29 mL/min) *Enoxaparin/Lovenox 30 mg SQ BID (WT < 150 kg, CrCl > 30 mL/min) AND *Sequential Compression Device (SCD) Assessment and Plan - Assessment (1) Chest pain Code(s): R07.9 - Chest pain, unspecified Status: Acute (2) History of mitral valve repair Code(s): Z98.890 - Other specified postprocedural states Status: Acute (3) Chronic neck and back pain Code(s): M54.2 - Cervicalgia; M54.9 - Dorsalgia, unspecified; G89.29 - Other chronic pain Status: Acute (4) COPD (chronic obstructive pulmonary disease) Code(s): J44.9 - Chronic obstructive pulmonary disease, unspecified Status: Acute (5) History of Marti's esophagus Code(s): Z87.19 - Personal history of other diseases of the digestive system Status: Acute - Plan * Chest pain: Patient has had serial cardiac enzymes and EKGs for ruling out purposes. He had a cardiac catheterization May 2017 that did not reveal significant CAD. Patient will be seen by Dr. Talavera of cardiology in the [facility] but likely will be discharged home without her further cardiac studies. He should follow-up with his prescription clerk as well as keep the point with his cardiovascular thoracic surgeon which is in 2 more days. Return to ED for interval issues. * History of mitral valve repair: Continue treatment with his cardiovascular thoracic surgeon and prescription clerk. * COPD, as needed DuoNeb's. * Chronic neck and back pain: Continue his medications at home. * Marti's esophagus: Continue medication. States he had endoscopy and colonoscopy less than a year ago and that it looked okay. Patient is stable at this time. He is agreeable to this plan. H&P: Quality - VTE Deep Vein Thrombosis/Pulmonary Embolism Present on Admission: No
--- NOTE | 2017-09-02 10:45 | ECG ---
Date Performed: 09/02/2017 Time Performed: 05:31:52 PTAGE: 61 years EKG: Sinus rhythm WITH FREQUENT VENTRICULAR PREMATURE COMPLEXES POSSIBLE LEFT ATRIAL ENLARGEMENT MARKED LEFT AXIS ALESHA ATION INCOMPLETE RIGHT BUNDLE BRANCH BLOCK ABNORMAL ECG PREVIOUS TRACING : 09/02/2017 02.52 Since previous tracing, no significant change noted DOCTOR: Giovanny Talavera Interpretating Date/Time 09/02/2017 10:43:08
--- NOTE | 2017-09-02 10:45 | ECG ---
Date Performed: 09/01/2017 Time Performed: 18:57:09 PTAGE: 61 years EKG: Sinus rhythm POSSIBLE LEFT ATRIAL ENLARGEMENT INCOMPLETE RIGHT BUNDLE BRANCH BLOCK BORDERLINE ECG PREVIOUS TRACING : 08/30/2017 20.01 Since previous tracing, no significant change noted DOCTOR: Giovanny Talavera Interpretating Date/Time 09/02/2017 10:44:54
--- NOTE | 2017-09-02 10:45 | ECG ---
Date Performed: 09/02/2017 Time Performed: 02:52:08 PTAGE: 61 years EKG: Sinus rhythm WITH FREQUENT VENTRICULAR PREMATURE COMPLEXES POSSIBLE LEFT ATRIAL ENLARGEMENT INCOMPLETE RIGHT BUND LE BRANCH BLOCK ABNORMAL RHYTHM ECG INTERPRETATION BASED ON A DEFAULT AGE OF 40 YEARS PREVIOUS TRACING : 09/01/2017 18.57 Compared to previous tracing,PVCs are new. DOCTOR: Giovanny Talavera Interpretating Date/Time 09/02/2017 10:44:18
[2017-09-02 11:49] VITALS: BP 104/67; PULSE 82; O2SAT 96
== END 2017-09-02 15:44 | disposition home or self-care (01) ==
LOC: NEPGCP 18:37 → NEDA 18:37 → NEPE 18:37 → NEPGCP 09-02 01:12

== ENCOUNTER 2017-11-06 11:45 | Observation (INO) ==
[2017-11-06 12:45] LABS: Baso # (Auto) 0.1 th/mm3 (0.0-0.2); Baso % (Auto) 1.2 % (0.0-2.0); Eos # (Auto) 0.2 th/mm3 (0.0-0.4); Eos % (Auto) 3.4 % (0.0-4.0); Hematocrit 39.9 % (39.0-51.0); Hemoglobin 13.5 gm/dL (13.0-17.0); Lymph # (Auto) 2.3 th/mm3 (1.0-4.8); Mean Corpuscular HGB Conc 33.8 % (32.0-36.0); Mean Corpuscular Hemoglobin 25.8 pg (27.0-34.0); Mean Corpuscular Volume 76.3 fL (80.0-100.0); Mean Platelet Volume 8.9 fL (7.0-11.0); Mono # (Auto) 0.7 th/mm3 (0.0-0.9); Mono % (Auto) 10.5 % (0.0-8.0); Neut # (Auto) 3.2 th/mm3 (1.8-7.7); Neut % (Auto) 48.9 % (16.0-70.0); Platelet Count 288 th/mm3 (150-450); Red Blood Count 5.23 mil/mm3 (4.50-5.90); Red Cell Distribution Width 15.2 % (11.6-17.2); White Blood Count 6.5 th/mm3 (4.0-11.0)
[2017-11-06] MEDS ORDERED: ceFAZolin 2 GM Premix Inj 2 GM/50 ML PIGGYBACK IV.SIG ONE (13:28)
[2017-11-06] MEDS ORDERED: ceFAZolin 2 GM Premix Inj 2 GM/50 ML PIGGYBACK IV.SIG SCH (13:30)
[2017-11-06 13:40] LABS: Calcium 8.4 mg/dL (8.5-10.1)
[2017-11-06 13:41] LABS: Potassium 4.8 meq/L (3.5-5.1)
[2017-11-06] MEDS ORDERED: Metoprolol Tartrate 25 MG Tablet PO ONE (13:45)
[2017-11-06] MEDS ORDERED: Lidocaine PF 1% Inj 5 ML Syringe OTHER ONE (13:45)
[2017-11-06] MEDS ORDERED: Neostigmine Inj 5 MG/5 ML Syringe IV.PUSH ONE (13:45)
[2017-11-06] MEDS ORDERED: Chlorhexidine Gluconate 2% 1 Pack (2 Cloths) TOPICAL ONE (13:45)
[2017-11-06] MEDS ORDERED: Glycopyrrolate Inj 1 MG/5 ML Syringe IV.PUSH ONE (13:45)
[2017-11-06] MEDS ORDERED: Sodium Chlor 0.9% Inj 500 ML IV.CONT ONE (13:45)
[2017-11-06] MEDS ORDERED: Bupivacaine/Epinephrine Inj 0.25% 50 ML Vial ONE (13:53)
[2017-11-06] MEDS ORDERED: fentaNYL Citrate Inj 100 MCG/2 ML Ampul ONE (15:31)
[2017-11-06] MEDS ORDERED: Bisacodyl 10 MG Supp RECTAL PRN (15:33)
[2017-11-06] MEDS ORDERED: Promethazine 25 MG Supp RECTAL PRN (15:33)
[2017-11-06] MEDS ORDERED: Post-op Orders (for Pharmacy) OTHER ONE (15:33)
--- NOTE | 2017-11-06 15:33 | P.OP ---
- Preoperative Diagnosis (1) Recurrent right inguinal hernia (2) Left inguinal hernia (3) Umbilical hernia - Postoperative Diagnosis (1) Left inguinal hernia (2) Recurrent right inguinal hernia (3) Umbilical hernia Date of procedure: 11/06/17 Procedure: Laparoscopic repair left inguinal hernia with mesh Laparoscopic repair recurrent right inguinal hernia with mesh Umbilical hernia repair Implants: Atrium Prolite mesh Anesthesia: LEBRON Surgeon: Tomy Velazquez MD [employer] Instructor: Isha Johnson Estimated blood loss (mL): 25 Pathology: none sent Operation and Findings: Patient was identified as Ruperto Scott, taken to the operating room, and placed in a supine position. Sequential compression device were placed on bilateral lower extremities. Following induction of adequate general endotracheal anesthesia the patient's lower abdomen was prepped and draped in usual sterile fashion with Betadine. A timeout procedure was performed. Following completion of the timeout procedure everyone's satisfaction within the room local anesthetic was infiltrated generously in the infraumbilical position where the proposed incision was to be and around the umbilicus. Incision was carried out with a scalpel. The umbilical skin was lifted off the herniated preperitoneal fatty tissue. The redundant preperitoneal fatty tissue protruding through the umbilical hernia defect was excised using electrocautery. The defect at the umbilicus and the fascia was about 6 mm in diameter. Attention was then turned to identification of the left anterior rectus fascia. The anterior rectus fascia was incised at its medial border using a scalpel and a preperitoneal plane was developed with the surgeon's finger directed towards the pubic symphysis. With the patient in slight Trendelenburg position the preperitoneal dissecting balloon was placed in the preperitoneal space and under direct laparoscopic view inflated to a total of approximately 30 pumps. This allowed for identification of the Hong's ligament on the left side and left inferior epigastric vessels in the right inferior epigastric vessels. The dissecting balloon was desufflated and removed and the structural balloon trocar was placed into the preperitoneal space, its balloon inflated, and CO2 insufflation to level of 11 mmHg ensued. 2 infraumbilical midline 5 mm trochars were placed into the peritoneal cavity under direct laparoscopic view after incision in the skin with a scalpel. Attention was turned first to the left side. There was a generalized ooze related to the patient continuing on aspirin as recommended by his plastic eye technician. Blunt dissection lateral and posterior to the spermatic cord was performed. Posterior laterally spermatic cord lipomatous material was withdrawn from the inguinal canal and reduced into the preperitoneal space. Preperitoneal fatty tissue was reduced from a direct hernia defect. Adherent peritoneum was reduced to the base of the spermatic cord anterior medially. A 4 x 6" piece of atrium Prolite mesh was cut with an anterolateral slit and placed surrounding the spermatic cord. The mesh was tacked in position using a tacking device to approximate the anterolateral slit and on the inferior lateral Hong's ligament. A 2 x 6" piece of the mesh was then placed across the anterolateral slit and help position with the tacking device placing a tacks superior lateral inferior medial and superior medial. The mesh broadly covered the hernia defects. No tacks were placed inferior laterally to avoid cutaneous nerve injury. Attention was then turned to the right side. Visualization demonstrated a obvious incarcerated tissue to what appeared to be a recurrent direct inguinal hernia. Blunt dissection laterally allowed for defecation the inferior epigastric vessels and the spermatic cord lateral to the incarcerated tissue. Incarcerated tissue was then reduced using blunt graspers and a fair amount of fatty tissue and peritoneal hernia sac protruded through the direct hernia defect and posterior and slightly lateral to it through a femoral hernia defect. Careful dissection allowed for reduction of the tissue that was stuck through these recurrent defects. A defect in the hernia sac was closed with a 0 PDS Endoloop. A generalized ooze occurred. Suction dissection and electrocautery on small bleeding points was performed. This resolved any bleeding. Blunt dissection posterior to the spermatic cord was then able to be performed. No evidence of spermatic cord lipoma or recurrent indirect inguinal hernia was identified. No mesh material was seen in the preperitoneal space. A 4 x 6" piece of atrium Prolite mesh was cut with an anterolateral slit, placed surrounding the spermatic cord, and tacked in position using the tacking device. Single tack was used to approximate the anterolateral slit and a second tack was placed on the superior lateral Hong' s ligament. A 2 x 6" piece the mesh was placed across the anterolateral slit and help position placing a tacks superior lateral inferior medial and superior medial. This broadly covered the recurrent hernia defects at the direct and femoral spaces. Care was taken to avoid tach placement inferior laterally to avoid cutaneous nerve injury. Small amount of residual bloody drainage was suctioned out. There was no evidence of continued bleeding or ooze. Remaining local anesthetic was placed into the preperitoneal space and some was injected around the recurrent hernia defect on the right side. Trochars were removed under direct visualization there was no evidence of bleeding from trocar sites. During desufflation of the preperitoneal space mesh on both sides was held against the abdominal wall. The infraumbilical trocar was removed. Anterior rectus fascial incision was closed with running 2-0 Vicryl suture. Small amount of CO2 which made its way into the peritoneal cavity was decompressed through an opening in the umbilical hernia defect. The umbilical hernia fascial defect was closed with 2 interrupted inverted 0 Prolene sutures. The umbilicus was reformed to its normal inward projection with 2 interrupted 2-0 Vicryl sutures. 2-0 Vicryl and 4-0 Monocryl closed the skin incision at the umbilicus, 4-0 Monocryl subcuticular sutures were placed and the other 5 mm trocar sites. Dressings were applied with Mastisol and half-inch brown Steri- Strips. Gauze and Tegaderm were placed over the umbilicus. The patient tolerated the procedure without apparent complication. Sponge needle and instrument counts were correct at the end of the case. The patient was transported to PACU in stable condition.
[2017-11-06] MEDS ORDERED: Ibuprofen 600 MG Tablet PO PRN (15:36)
[2017-11-06] MEDS ORDERED: *morphine SULFATE 4 MG/ML PERIprocedure ONLY ONE (16:35)
[2017-11-06] MEDS: Senna/Docusate Sodium 8.6/50 MG Tablet PO SCH (20:19)
[2017-11-07] MEDS: Senna/Docusate Sodium 8.6/50 MG Tablet PO SCH ×2 (08:17→20:03)
--- NOTE | 2017-11-07 10:59 | P.PNGS ---
Subjective Patient reports: still having pain (Patient experiencing right groin and periumbilical pain. It is significant enough that the oxycodone does not cover it. He is asking for morphine. He is a chronic pain patient. He is passing urine. He is tolerating oral diet. He has no nausea vomiting.) Physical Exam Vital signs: Vital Signs 11/06/17 12:31 11/06/17 15:23 11/06/17 15:30 Temperature 99.3 F 98.1 F Pulse Rate 65 85 76 Respiratory Rate 20 17 16 Blood Pressure 125/77 135/78 136/78 Pulse Oximetry 96 93 L 93 L 11/06/17 15:45 11/06/17 16:00 11/06/17 16:15 Temperature Pulse Rate 70 63 66 Respiratory Rate 17 17 17 Blood Pressure 134/73 131/73 129/75 Pulse Oximetry 93 L 94 L 94 L 11/06/17 16:35 11/06/17 17:51 11/06/17 20:00 Temperature 98.0 F 98.4 F 98.1 F Pulse Rate 66 66 82 Respiratory Rate 16 18 18 Blood Pressure 128/75 141/74 H 118/69 Pulse Oximetry 94 L 92 L 94 L 11/06/17 21:48 11/07/17 00:00 11/07/17 02:17 Temperature 97.8 F Pulse Rate 65 Respiratory Rate 18 16 18 Blood Pressure 101/59 L Pulse Oximetry 92 L 11/07/17 08:00 Temperature 97.1 F L Pulse Rate 60 Respiratory Rate 16 Blood Pressure 118/64 Pulse Oximetry 94 L Intake & Output 11/06/17 11/07/17 11/07/17 18:59 06:59 18:59 Intake Total 950 / 950 1030 / 1030 Output Total 625 / 625 Balance 925 / 925 405 / 405 Weight 65.1 kg 69.9 kg Intake: IV 50 / 50 1030 / 1030 LR 1000 mL Inj 1,000 ML @ 100 1000 / 1000 mls/hr IV.CONT .Q10H MARTINA Rx#: [id number] Ancef 2 GM Premix Inj 2 gm In 50 / 50 50 ml @ 100 mls/hr IV.SIG SOAP PRESS FEEDER MARTINA Rx#:[id number] Anesthesia Amount 900 / 900 Output: Urine 625 / 625 Estimated Blood Loss Other: Date of Last Bowel Movement 11/06/17 Weight On Admission 65.1 kg Narrative: Abdomen is distended. He has normal bowel sounds. Umbilical dressing intact. Moderate periumbilical ecchymosis is present. 2 other incision sites are healing fine. Images are nonedematous. Sequential compression device are in place. He does not appear in extremis. Results - Labs 11/06/17 12:30 11/06/17 12:30 Laboratory Results - last 24 hr 11/06/17 11/06/17 12:30 12:30 WBC 6.5 RBC 5.23 Hgb 13.5 Hct 39.9 MCV 76.3 L MCH 25.8 L MCHC 33.8 RDW 15.2 Plt Count 288 MPV 8.9 Neut % (Auto) 48.9 Lymph % (Auto) 36.0 [place] % (Auto) 10.5 H Eos % (Auto) 3.4 Baso % (Auto) 1.2 Neut # (Auto) 3.2 Lymph # (Auto) 2.3 [place] # (Auto) 0.7 Eos # (Auto) 0.2 Baso # (Auto) 0.1 WBC Differential . Differential Comment Auto diff final Sodium 141 Potassium 4.8 Chloride 105 Carbon Dioxide 26.0 Anion Gap 10 BUN 18 Creatinine 1.08 Estimated GFR 70 L Random Glucose 87 Calcium 8.4 L Assessment and Plan - Assessment (1) Recurrent right inguinal hernia Code(s): K40.91 - Unilateral inguinal hernia, without obstruction or gangrene, recurrent Status: Acute (2) Left inguinal hernia Code(s): K40.90 - Unilateral inguinal hernia, without obstruction or gangrene, not specified as recurrent Status: Acute (3) Umbilical hernia Code(s): K42.9 - Umbilical hernia without obstruction or gangrene Status: Acute - Plan Postop day 1 status post laparoscopic repair recurrent right inguinal hernias with mesh, laparoscopic repair left inguinal hernia with mesh, umbilical hernia repair. Patient is a chronic pain patient on oxycodone. His abdominal distention probably related to narcotic use. Is requesting intravenous morphine to get him over the hump. His experience similar type problems after previous surgeries by other surgeons in the past he relates. Plan is to give him IV morphine and encourage him to be up and walking around. He also typically uses Metamucil which keeps him regular and I have ordered Metamucil for him. If he improves as anticipated I would recommend discharge home tomorrow. Discussed Condition With: Patient and bedside RN and RN student.
[2017-11-07] MEDS: Morphine Inj 4 MG/ML Vial IV.PUSH PRN ×2 (11:58→17:43)
[2017-11-07] MEDS: Psyllium Husk SF 3.4 GM in 5.8 GM Packet PO SCH ×2 (12:01→20:03)
[2017-11-08] MEDS: Morphine Inj 4 MG/ML Vial IV.PUSH PRN (00:30)
[2017-11-08] MEDS ORDERED: Polyethylene Glycol 3350 17 GM Packet PO ONE (10:00)
--- NOTE | 2017-11-08 10:11 | P.PNGS ---
Subjective Interval history: Up to recliner chair C/o of severe RIGHT groin pain. He feels like his legs are " weight" Physical Exam Vital signs: Vital Signs 11/07/17 12:00 11/07/17 17:42 11/07/17 17:48 Temperature 97.0 F L Pulse Rate 70 Respiratory Rate 17 16 16 Blood Pressure 128/68 Pulse Oximetry 94 L 11/07/17 20:00 11/07/17 22:26 11/08/17 00:00 Temperature 97.7 F 98.4 F Pulse Rate 67 71 Respiratory Rate 15 18 15 Blood Pressure 148/73 H 135/66 Pulse Oximetry 93 L 93 L 11/08/17 00:32 11/08/17 05:39 11/08/17 08:00 Temperature 98.4 F Pulse Rate 78 Respiratory Rate 18 18 16 Blood Pressure 113/64 Pulse Oximetry 90 L Intake & Output 11/07/17 11/08/17 11/08/17 18:59 06:59 18:59 Intake Total 1100 / 1100 700 / 700 Output Total 600 / 600 Balance 1100 / 1100 100 / 100 Weight 65.1 kg Intake: Oral 1100 / 1100 700 / 700 Output: Urine 600 / 600 Other: # Voids 3 2 # Bowel Movements 0 Narrative: Alert and awake Mild ecchymosis around umbilical dressing---Tegaderm in place; lap sites c/d/i; Abdomen with distention RIGHT groin with swelling; tender to extremely light palpation LEFT groin tender to extremely light palpation Mild ecchymosis over bilateral groin Results - Labs 11/06/17 12:30 11/06/17 12:30 Assessment and Plan - Assessment (1) Recurrent right inguinal hernia Code(s): K40.91 - Unilateral inguinal hernia, without obstruction or gangrene, recurrent Status: Acute Plan: 61 year old male POD2 lap Bilateral inguinal hernia repair and umbilical hernia repair -Diet as tolerated -No BM---added Miralax and MOM -Pain control -He does not want to wear abdominal binder --- I have discussed with him the importance of it -I have asked Merchandise Buyer Alina to order new athletic supporter (2) Left inguinal hernia Code(s): K40.90 - Unilateral inguinal hernia, without obstruction or gangrene, not specified as recurrent Status: Acute (3) Umbilical hernia Code(s): K42.9 - Umbilical hernia without obstruction or gangrene Status: Acute - Plan 61 year old male POD2 laparoscopic bilateral inguinal hernia and umbilical hernia repair -Discussed pain control---recommend weaning IV morphine -Regular diet -Await bowel function ---added Miralax/MOM -Encouraged OOB -Hopefully home tomorrow - Attending Attestation SEEN WITH FLATCAR WHACKER. STILL CONSTIPATED AND DISTENDED. PAIN MODERATE, REFUSING TO AMBULATE THIS AM. [facility] PAIN MEDS. MERCEDES ORTIZ MD FACS
[2017-11-08] MEDS: Senna/Docusate Sodium 8.6/50 MG Tablet PO SCH ×2 (10:29→22:15)
[2017-11-08] MEDS: Psyllium Husk SF 3.4 GM in 5.8 GM Packet PO SCH ×2 (10:29→22:14)
[2017-11-09] MEDS: Psyllium Husk SF 3.4 GM in 5.8 GM Packet PO SCH (10:25)
[2017-11-09] MEDS: Senna/Docusate Sodium 8.6/50 MG Tablet PO SCH (10:25)
--- NOTE | 2017-11-09 11:31 | P.DS ---
Date of admission: 11/06/17 16:51 Primary care physician: Dr Myles ALLEN Amy Attending physician on discharge: Tomy Velazquez Anticipated date of discharge: 11/09/17 Brief History from admission: 61-year-old male status post laparoscopic bilateral inguinal hernia repair and umbilical hernia repair DS: Diagnosis - Discharge Diagnosis (1) Recurrent right inguinal hernia Status: Acute (2) Left inguinal hernia Status: Acute (3) Umbilical hernia Status: Acute DS: Summary Hospital Course: This is a 61-year-old male status post bilateral inguinal hernia repair in umbilical hernia repair with mesh. The patient's pain was controlled using oral pain medication. The patient was able to tolerate a diet. His he was able to have a bowel movement before discharge. The patient will follow up in the office of Dr. Velazquez on Sunday. The patient states he has pain medication at home and does not need a prescription for this. - Time Spent with Patient Total time spent providing and/or coordinating discharge services: Less than 30 minutes - Quality: VTE Deep Vein Thrombosis/Pulmonary Embolism Present on Admission: No Exam Vital signs: Vital Signs 11/08/17 12:00 11/08/17 16:01 11/08/17 20:00 Temperature 97.7 F 97.6 F 97.8 F Pulse Rate 76 77 93 H Respiratory Rate 17 18 17 Blood Pressure 140/77 157/79 H 148/88 H Pulse Oximetry 93 L 95 95 11/09/17 00:00 11/09/17 07:50 11/09/17 08:00 Temperature 98.4 F 98.0 F Pulse Rate 79 77 Respiratory Rate 16 18 16 Blood Pressure 116/62 114/63 Pulse Oximetry 94 L 94 L Intake & Output 11/08/17 11/09/17 11/09/17 18:59 06:59 18:59 Intake Total 2000 / 2000 500 / 500 1000 / 1000 Output Total 800 / 800 Balance 1200 / 1200 500 / 500 1000 / 1000 Weight 65.1 kg Intake: IV 1000 / 1000 LR 1000 mL Inj 1,000 ML @ 100 1000 / 1000 mls/hr IV.CONT .Q10H MARTINA Rx#: [id number] Oral 2000 / 2000 500 / 500 Output: Urine 800 / 800 Other: # Voids 3 2 Date of Last Bowel Movement 11/08/17 11/08/17 # Bowel Movements 0 Narrative: Alert and awake Abd: soft; mild bruising around umbilicus; lap sites c/d/i; groin swelling decreased Results Procedures completed during hospitalization: Laparoscopic bilateral inguinal hernia repairs and umbilical hernia Discharge Plan - Discharge Disposition Patient Disposition: 01 Discharge Home - Discharge Condition Condition: Good - Discharge Order Discharge Orders: Discharge Order (Routine); Ordered 11/09/17 Ordered By: Aggie Resendiz - Discharge Details Anticipated Discharge Date: 11/09/17 - Physicians Team Attending Provider: Tomy Velazquez Other Providers: Jeannette Machado - Rxs /Orders / Referrals /Forms Prescriptions: Continue aspirin 81 mg Tablet,Chewable 81 mg PO DAILY omeprazole 40 mg Capsule,Delayed Release(Dr/Ec) 40 mg PO DAILY oxycodone 15 mg Tablet 30 mg PO Q4-6H PRN (Reason: Pain) tizanidine [Zanaflex] 4 mg Capsule 4 mg PO TID PRN (Reason: Muscle Spasm) Discontinued ibuprofen 600 mg Tablet 600 mg PO TID PRN (Reason: Muscle Spasm) Referrals: Dr Myles Reyes MD [Other] - See Instructions (Call to schedule follow up appointment .) Tomy Velazquez MD [Physician] - See Instructions (Appt set for SundayNov 14 at 9AM) - Discharge Instructions Patient Printed Instructions: Pain Management After Surgery (DC), Acute Wound Care (DC), Inguinal Hernia Repair (DC)
[2017-11-09 13:11] VITALS: BP 148/80; PULSE 76; RESP 18; TEMP 97.2; O2SAT 96
== END 2017-11-09 16:31 | disposition home or self-care (01) ==
LOC: HSDC 11:45 → HSDI 15:33 → INTOOBSV 15:33 → N07 16:52
PROVIDERS: ADMIT Surgery Trauma Surgery; ATTEND Surgery Trauma Surgery

== ENCOUNTER 2018-01-31 07:59 | Observation (INO) ==
[2018-01-31] MEDS ORDERED: Metoprolol Tartrate 25 MG Tablet PO ONE (08:45)
[2018-01-31] MEDS ORDERED: Chlorhexidine Gluconate 2% 1 Pack (2 Cloths) TOPICAL ONE (08:45)
[2018-01-31] MEDS ORDERED: Dexamethasone PF Inj 10 MG/ML Vial ONE (08:55)
[2018-01-31] MEDS ORDERED: Sodium Chlor 0.9% Inj 500 ML IV.SIG SCH (09:00)
[2018-01-31 10:36] LABS: Baso # (Auto) 0.1 th/mm3 (0.0-0.2); Baso % (Auto) 1.1 % (0.0-2.0); Eos # (Auto) 0.1 th/mm3 (0.0-0.4); Hematocrit 37.5 % (39.0-51.0); Hemoglobin 12.6 gm/dL (13.0-17.0); Lymph # (Auto) 1.3 th/mm3 (1.0-4.8); Lymph % (Auto) 23.3 % (9.0-44.0); Mean Corpuscular HGB Conc 33.4 % (32.0-36.0); Mean Corpuscular Volume 77.7 fL (80.0-100.0); Mean Platelet Volume 8.4 fL (7.0-11.0); Mono # (Auto) 0.5 th/mm3 (0.0-0.9); Mono % (Auto) 8.5 % (0.0-8.0); Neut # (Auto) 3.6 th/mm3 (1.8-7.7); Neut % (Auto) 65.1 % (16.0-70.0); Platelet Count 504 th/mm3 (150-450); Red Blood Count 4.83 mil/mm3 (4.50-5.90); Red Cell Distribution Width 14.9 % (11.6-17.2); White Blood Count 5.6 th/mm3 (4.0-11.0)
[2018-01-31] MEDS ORDERED: fentaNYL Citrate Inj 100 MCG/2 ML Ampul ONE (11:24)
[2018-01-31] MEDS ORDERED: Famotidine PF Inj 20 MG/2 ML Vial ONE (11:25)
[2018-01-31] MEDS ORDERED: ceFAZolin 2 GM Premix Inj 2 GM/50 ML PIGGYBACK IV.SIG SCH (13:00)
--- NOTE | 2018-01-31 14:38 | XR ---
EXAM DATE: 01/31/2018 2:34 PM EST AGE/SEX: 62 years / Male INDICATIONS: ORIF left 3rd and 4th digit. CLINICAL DATA: This is the patient's initial encounter. Patient reports that signs and symptoms have been present for 1 day and indicates a pain score of Nonresponsive. MEDICAL/SURGICAL HISTORY: Non-responsive. Non-responsive. COMPARISON: [facility], HAND COMPLETE LEFT MIN 3V, 01/17/2018. . FINDINGS: 2 spot fluoroscopic images obtained in the operating room during a procedure documents posterior a si deplate with interlocking screws on the third and fourth metacarpals. There is improved alignment. CONCLUSION: Improved alignment following left third and fourth metacarpal ORIF. Electronically signed by: Griffin Hensley MD Board Certified Radiologist 01/31/2018 2:36 PM EST
[2018-01-31] MEDS: ceFAZolin 2 GM Premix Inj 2 GM/50 ML PIGGYBACK IV.SIG SCH (19:53)
[2018-01-31] MEDS ORDERED: Acetaminophen 325 MG Tablet PO ONE (22:15)
[2018-02-01] MEDS: ceFAZolin 2 GM Premix Inj 2 GM/50 ML PIGGYBACK IV.SIG SCH ×2 (04:50→12:04)
--- NOTE | 2018-02-01 06:49 | P.PNOP ---
Subjective Interval history: Mr. Scott is doing well this morning with regard to pain control of his left hand. He does endorse new onset headache and tinnitus. He notes this also occurred 2-3 days ago. He is being managed by a neurologist as an outpatient. Physical Exam Vital signs: Vital Signs 01/31/18 09:22 01/31/18 09:49 01/31/18 14:56 Temperature 99.3 F 98.5 F Pulse Rate 67 70 92 H Respiratory Rate 19 15 Blood Pressure 139/72 137/76 Pulse Oximetry 98 99 97 01/31/18 15:00 01/31/18 15:15 01/31/18 15:30 Temperature 97.6 F Pulse Rate 87 86 86 Respiratory Rate 15 16 16 Blood Pressure 131/75 127/76 121/69 Pulse Oximetry 97 95 95 01/31/18 16:11 01/31/18 20:00 02/01/18 00:00 Temperature 98.6 F 98.1 F 97.8 F Pulse Rate 94 H 97 H 84 Respiratory Rate 17 20 20 Blood Pressure 118/68 106/62 106/55 L Pulse Oximetry 93 L 95 94 L 02/01/18 04:00 Temperature 97.8 F Pulse Rate 74 Respiratory Rate 20 Blood Pressure 105/63 Pulse Oximetry 96 Intake & Output 01/31/18 01/31/18 02/01/18 06:59 18:59 06:59 Intake Total 2850 / 2850 900 / 900 Output Total 10 10 1200 / 1200 Balance 2840 / 2840 -300 / -300 Weight 64.2 kg 64.2 kg Intake: IV 1050 / 1050 100 / 100 LR 1000 mL Inj 1,000 ML @ 30 1000 / 1000 mls/hr IV.SIG .Q24H [facility]ARTINA Rx#: [id number] Ancef 2 GM Premix Inj 2 gm In 50 / 50 100 / 100 50 ml @ 100 mls/hr IV.SIG Q8H MARTINA Rx#:[id number] Oral 800 / 800 800 / 800 Anesthesia Amount 1000 / 1000 Output: Urine 1200 / 1200 Estimated Blood Loss Other: Date of Last Bowel Movement 01/30/18 Weight On Admission 64.2 kg - Constitutional no acute distress - Routine Extremities Exam Comments: Focused evaluation of the left upper extremity demonstrates sensation intact to the median, radial, ulnar nerve distribution. Diminished to the thumb at baseline. Dressing, clean dry intact. Brisk cap refill to the digits less than 2 seconds. Results - Labs CBC & Chem 7: 01/31/18 09:30 Laboratory Results - last 24 hr 01/31/18 01/31/18 09:05 09:30 WBC 5.6 RBC 4.83 Hgb 12.6 L Hct 37.5 L MCV 77.7 L MCH 26.0 L MCHC 33.4 RDW 14.9 Plt Count 504 H D MPV 8.4 Neut % (Auto) 65.1 Lymph % (Auto) 23.3 [place] % (Auto) 8.5 H Eos % (Auto) 2.0 Baso % (Auto) 1.1 Neut # (Auto) 3.6 Lymph # (Auto) 1.3 [place] # (Auto) 0.5 Eos # (Auto) 0.1 Baso # (Auto) 0.1 WBC Differential . Differential Comment Auto diff final Blood Type A Positive Antibody Screen Negative - Imaging Impressions Hand X-Ray 01/31/18 00:00 CONCLUSION: Improved alignment following left third and fourth metacarpal ORIF. Assessment and Plan - Assessment and Plan Postop day 1 status post left middle finger and ring finger metacarpal open reduction internal fixation. 1. Nonweightbearing to left upper extremity 2. Postoperative antibiotic prophylaxis 3. Multimodal pain control 4. New onset tinnitus, headache. Medicine hospitalist consult requested yesterday. Will discuss transfer of care to the medicine hospitalist team pending their recommendations, regarding his neurologic symptoms. If they deemed the patient stable for discharge, he may be discharged home from an orthopedic perspective. Discharge instructions and follow-up on the chart. He will continue with his chronic pain management.
--- NOTE | 2018-02-01 08:06 | MP ---
cc: Shaheed ALLEN DATE OF OPERATION: 01/31/2018 PREOPERATIVE DIAGNOSIS: Left ring finger and middle finger metacarpal fracture. POSTOPERATIVE DIAGNOSIS: Left ring finger and middle finger metacarpal fracture. PROCEDURE PERFORMED: 1. Left middle finger open reduction internal fixation of metacarpal fracture, intraarticular. 2. Left ring finger open reduction internal fixation of metacarpal fracture, intraarticular. SURGEON: Shaheed Scott MD ANESTHESIA: General plus regional augment. ESTIMATED BLOOD LOSS: Minimal. SPECIMENS: None. TOURNIQUET: 250 mmHg for 90 minutes. COMPLICATIONS: None. IMPLANTS: Synthes 2.0 mm LCP T-plate, Synthes 1.5 mm LCP T-plate. INDICATIONS FOR PROCEDURE: Please see history and physical for complete details. In summary, Mr. Scott is a 62-year-old gentleman who sustained a left hand injury resulting in a metacarpal fracture involving the base of the metacarpal with intra-articular extension. This involved the ring and the middle fingers. He presented to my clinic in delayed fashion. We discussed our recommendations for open reduction internal fixation given the extent of displacement and prominence to the dorsum of the hand. Alternatively, we discussed that should he elect for nonoperative management that the fracture is likely to heal; however, it will heal in a malunited position. He elected to proceed with operative management. Relevant risks, benefits, expected postoperative course of surgical management were reviewed. Risks include, but are not limited to, damage to surrounding blood vessels or nerves, infection, wound healing issues, malunion, nonunion, hardware failure, and need for future surgery. Specifically, we discussed that he will require a minimum of 8 weeks of strict immobilization so as to allow for fracture healing. He did have some difficulty understanding that this duration of immobilization was required in order to ensure fracture healing and to prevent failure of the fixation construct. We had a discussion with him on multiple occasions regarding this postoperative rehabilitation course. I had my final discussion with him in the preoperative holding area with nurse Person in the exam room. We discussed our recommendations for a minimum of 3-4 weeks of cast immobilization followed by a removable custom made splint for an additional 3-4 weeks until fracture has had fully united. The patient voiced understanding of strict nonweightbearing to the left hand during his postoperative rehabilitation course. All questions and concerns were addressed to his apparent satisfaction. He agreed to proceed with surgery as per consent. DESCRIPTION OF PROCEDURE: The patient was identified in the preoperative holding area and the operative site was marked. They were then brought back to the operating room under the care of the anesthesiology team. They were then positioned supine on the OR table. All bony prominences were padded. A protocol timeout was performed during which the patient's identity, site, side and nature of the procedure was confirmed. General anesthesia was induced without untoward effect and an LMA was placed. A nonsterile pneumatic tourniquet was applied to the upper extremity. The left upper extremity was prepped and draped in a routine strict sterile fashion using triple prep solution and occlusive draping. The upper extremity was exsanguinated and the pneumatic tourniquet was then inflated to 250 mmHg and remained inflated for the duration of the case. A longitudinal incision was made centralized over the interspace between the third and fourth metacarpal extending proximally to the CMC joint. Sharp dissection was carried through skin and full-thickness skin flaps were elevated to protect the cutaneous nerves. The extensor tendons were identified at the juncture between the middle finger and ring finger. The tendons were incised and the tendons were then retracted to expose the metacarpal shafts. The periosteum was then sharply excised to create full-thickness periosteal flaps for later repair. The base of the middle finger and ring finger CMC joint was then exposed. Fracture site was exposed. It was then debrided off interposed fibrous tissue and hematoma debris. This was performed with the use of #15 blade scalpel as well as a synovial puncture. There was already evidence of interval callus formation. A reduction of the middle finger metacarpal was then performed and an appropriately sized 2.0 mm T-plate was selected. This was provisionally placed using K-wires and then AP and lateral fluoroscopic imaging confirmed excellent plate position. Two locking screws were then placed while reduction was being maintained at the base of the metacarpal into cancellous bone. Care was taken to ensure that the screw placement was extraarticular. Of note, his fracture pattern had an oblique shear pattern that left a minimal amount of cortical bone at the proximal fracture end. As such, fixation into the proximal fracture end was limited. However, an adequate reduction and fixation was achieved. Nonlocking screws were then placed in the distal end of the plate, followed by an additional locking screw. Final fluoroscopic imaging was obtained. This demonstrated excellent reduction of the metacarpal fracture with appropriate hardware placement and adequate screw length. Attention was then turned to the ring finger metacarpal. There was evidence of comminution at the fracture site with a yet smaller proximal fracture end with a shear type pattern that extended to the level of the CMC joint. The fracture ends were exposed and debrided of fibrous tissue and the hematoma debris. A reduction was then performed and a 1.5 mm T-plate was then selected. It was provisionally placed. Fluoroscopic imaging confirmed adequate plate position. The screws were then individually drilled and placed starting with locking screws in the metaphyseal cluster followed by cortical screws distally. Final fluoroscopic imaging was then obtained at this point in time. This demonstrated excellent reduction of the third and fourth metacarpal fractures. There was excellent hardware position with adequate screw length. There was no evidence of hardware complication. Holiness of bony anatomy was adequate. Attention was turned to wound closure. The wounds were thoroughly irrigated with normal saline solution. The periosteum was reapproximated over the plate with use of a 3-0 Surgilon suture. The juncture was then reapproximated with a 3-0 Surgilon suture. The skin was closed with 4-0 Prolene in a horizontal mattress fashion. A dry sterile dressing consisting of Xeroform, 4 x 4 gauze, burn fluffs and a volar splint was then applied. This completed the case. At the conclusion of the case, all sponge and needle counts were correct x2. The tourniquet was released. The patient had excellent capillary refill to the tip of the digits. DISPOSITION: The patient was reversed from anesthesia, transferred to the PACU in stable condition. POSTOPERATIVE RECOMMENDATIONS: 1. Strict nonweightbearing to the left upper extremity. 2. Upper extremity elevation for edema control. 3. Multimodal pain control. The patient is on chronic pain medication,will continue on that medication as managed by his chronic pain by his pain physician. 4. The patient will be admitted for observation only. He will be discharged home on hospital day 1. 5. Plan for followup with hand therapy in [address] Scott in 2 weeks. At the clinic followup, he will have a P1 blocking cast placed to the middle and ring fingers. This will be in place for 3 weeks. Thereafter, he will have a hand therapy visit and transitioned to a custom fabricated P1 blocking splint for the middle and ring fingers. He will be strict nonweightbearing for a minimum of 8 weeks postoperatively. Shaheed Scott MD CM/sv , 07:06 AM , 07:20 AM
--- NOTE | 2018-02-01 08:38 | P.CON ---
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 Scott 01/31. [facility] consulted to assist with management as well as headaches. Patient is seen and examined resting bed comfortably in no acute distress. He reports about 3 days ago he had a headache that lasted about 3 hours with associated nausea and dizziness along with the feeling of head pressure. He reports that he follows up with a neurologist for his chronic headaches, has been seeing them for 8 months. He is unable to recall the name of his neurologist or the specific medication which she was prescribed on an as-needed basis for headaches. Today he reports a headache 10 times worse than his usual headaches with description of pressure on top of his head as well as bilateral temples. He endorses dizziness denies photophobia, phonophobia, nausea or vomiting. He denies any visual changes, fevers, chills, cough, shortness of breath. He states that he has plans of visiting his neurologist after he is discharged today. Review of Systems All other systems reviewed negative except as stated in HPI [facility] - History History Provided By: Patient - Medical History Medical History: Medical History (Last Updated 02/01/18 @ 11:48 by Chet Boothe) Chronic headaches Marti esophagus Chronic neck and back pain GERD (gastroesophageal reflux disease) Ganglion cyst of dorsum of left wrist Mitral valve disorder - Surgical History Surgical History: Surgical History (Last Reviewed 02/01/18 @ 11:48 by Chet Boothe) H/O colonoscopy H/O inguinal hernia repair H/O mitral valve repair History of esophagogastroduodenoscopy (EGD) - Family History Family History: Family History (Last Updated 02/01/18 @ 11:49 by Chet Boothe) Sister Lymphoma - Tobacco History Second Hand Smoke Exposure: No Tobacco Use In Past 30 Days: No Smoking Status: Former smoker (quit 15 years ago) Tobacco Type: Cigarettes - Alcohol History How Often Do You Have a Drink Containing Alcohol: Never - Substance Use History Substance History: No History of Abuse - Travel History Recent Travel in the [place] Within the Last 8 Weeks: No Recent Travel Out of the Country Within the Last 8 Weeks: No Medications and Allergies Active Medications: Active Medications Lactated Ringer's (Lr 1000 Ml Inj) 1,000 mls @ 30 mls/hr IV.SIG .Q24H MARTINA Stop: 02/01/18 08:44 Last Infusion: 01/31/18 14:34 Dose: Infused Sodium Chloride (Ns Inj) 500 mls @ 30 mls/hr IV.SIG .Q10H MARTINA Last Admin: 01/31/18 21:06 Dose: Not Given Cefazolin Sodium/Dextrose (Ancef 2 Gm Premix Inj) 2 gm in 50 mls @ 100 mls/hr IV.SIG Q8H MARTINA Stop: 02/01/18 12:29 Last Infusion: 02/01/18 05:20 Dose: Infused Meclizine HCl (Antivert) 25 mg PO ONCE ONE Stop: 02/01/18 08:23 Miscellaneous Information ([facility] Information) 0 each OTHER UNSCH PRN PRN Reason: SEE LABEL COMMENTS Stop: 02/01/18 14:54 Oxycodone HCl (Roxicodone) 5 mg PO Q4H PRN PRN Reason: PAIN 1-5 Oxycodone HCl (Roxicodone) 10 mg PO Q4H PRN PRN Reason: PAIN 6-10 Last Admin: 02/01/18 05:19 Dose: 10 mg Sumatriptan Succinate (Imitrex) 50 mg PO ONCE ONE Stop: 02/01/18 08:22 Allergies Allergy/AdvReac Type Severity Reaction Status Date / Time penicillin G Allergy Severe HIVES Verified 01/31/18 09:17 Home Medications Medication Instructions Recorded Confirmed Type oxycodone 30 mg PO Q4-6H PRN 08/26/17 01/31/18 History aspirin 81 mg PO DAILY 08/30/17 01/31/18 History omeprazole 40 mg PO DAILY 08/30/17 01/31/18 History Physical Exam Vital signs: Vital Signs 01/31/18 09:22 01/31/18 09:49 01/31/18 14:56 Temperature 99.3 F 98.5 F Pulse Rate 67 70 92 H Respiratory Rate 19 15 Blood Pressure 139/72 137/76 Pulse Oximetry 98 99 97 01/31/18 15:00 01/31/18 15:15 01/31/18 15:30 Temperature 97.6 F Pulse Rate 87 86 86 Respiratory Rate 15 16 16 Blood Pressure 131/75 127/76 121/69 Pulse Oximetry 97 95 95 01/31/18 16:11 01/31/18 20:00 02/01/18 00:00 Temperature 98.6 F 98.1 F 97.8 F Pulse Rate 94 H 97 H 84 Respiratory Rate 17 20 20 Blood Pressure 118/68 106/62 106/55 L Pulse Oximetry 93 L 95 94 L 02/01/18 04:00 Temperature 97.8 F Pulse Rate 74 Respiratory Rate 20 Blood Pressure 105/63 Pulse Oximetry 96 Intake & Output 01/31/18 02/01/18 02/01/18 18:59 06:59 18:59 Intake Total 2850 / 2850 900 / 900 Output Total 10 / 10 1200 / 1200 Balance 2840 / 2840 -300 / -300 Weight 64.2 kg 64.2 kg Intake: IV 1050 / 1050 100 / 100 LR 1000 mL Inj 1,000 ML @ 30 1000 / 1000 mls/hr IV.SIG .Q24H MARTINA Rx#: [id number] Ancef 2 GM Premix Inj 2 gm In 50 / 50 100 / 100 50 ml @ 100 mls/hr IV.SIG Q8H MARTINA Rx#:[id number] Oral 800 / 800 800 / 800 Anesthesia Amount 1000 / 1000 Output: Urine 1200 / 1200 Estimated Blood Loss Other: Date of Last Bowel Movement 01/30/18 Weight On Admission 64.2 kg Narrative: GENERAL: Well-nourished, well-developed male resting in bed in no acute distress. SKIN: Warm and dry. HEAD: Atraumatic. Normocephalic. EYES: PERRLA. No scleral icterus. No injection or drainage. ENT: No nasal bleeding or discharge. Mucous membranes pink and moist. NECK: Trachea midline. No JVD. CARDIOVASCULAR: Regular rate and rhythm. RESPIRATORY: No accessory muscle use. Clear to auscultation. Breath sounds equal bilaterally. GASTROINTESTINAL: Abdomen soft, non-tender, nondistended. + Bowel sounds MUSCULOSKELETAL: Extremities without cyanosis. Left hand/forearm in splint, + finger movement, sensation, capillary refill <3 seconds. NEUROLOGICAL: Awake, alert, oriented x3. No obvious cranial nerve deficits. Motor grossly within normal limits. Five out of 5 muscle strength in the arms and legs. Normal speech. PSYCHIATRIC: Appropriate mood and affect; insight and judgment normal. Results - Labs CBC & Chem 7: 01/31/18 09:30 Labs: Laboratory Results - last 24 hr 01/31/18 01/31/18 09:05 09:30 WBC 5.6 RBC 4.83 Hgb 12.6 L Hct 37.5 L MCV 77.7 L MCH 26.0 L MCHC 33.4 RDW 14.9 Plt Count 504 H D MPV 8.4 Neut % (Auto) 65.1 Lymph % (Auto) 23.3 Granite % (Auto) 8.5 H Eos % (Auto) 2.0 Baso % (Auto) 1.1 Neut # (Auto) 3.6 Lymph # (Auto) 1.3 Granite # (Auto) 0.5 Eos # (Auto) 0.1 Baso # (Auto) 0.1 WBC Differential . Differential Comment Auto diff final Blood Type A Positive Antibody Screen Negative - Imaging Impressions Hand X-Ray 01/31/18 00:00 CONCLUSION: Improved alignment following left third and fourth metacarpal ORIF. 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 Scott 01/31. [facility] consulted to assist with management as well as headaches. Fracture of left hand ring and middle metacarpals -s/p ORIF by Dr. Scott 01/31 -Per orthopedic recommendations he is to remain nonweightbearing of left upper extremity - Will complete prophylactic Ancef x3 doses prior to discharge. -We will need to follow-up with Dr. Scott for follow-up surgery in 2 weeks. -Advised not to drive given nonweightbearing restriction of left extremity. -Have contacted case management to assist with arranging transportation, extensive discussion with patient regarding recommendations however he declines transportation, discussed with . Chronic headaches Tinnitus -Patient follows up with neurology as outpatient for the past 8 months, reports he takes something on an as-needed basis for these headaches, unable to remember the name of medication. -Patient hemodynamically stable, CBC with mild microcytic anemia and mildly elevated platelets. 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 -Patient was administered Imitrex as well as meclizine. Return back to check on patient and he is ambulating in his room without assistive devices. Reports dizziness has resolved, headache is also resolving. Offered prescription for both which she is willing to take. -Discussed with patient that he will need to follow-up with his neurologist for ongoing management of chronic headaches, verbalized understanding. Thank you Dr. Scott for this consultation. Discussed Condition With: Patient, RN, pillowcase sewer, Dr. Scott.
--- NOTE | 2018-02-01 09:23 | CT ---
EXAM DATE: 02/01/2018 9:13 AM EST AGE/SEX: 62 years / Male INDICATIONS: Cephalgia. CLINICAL DATA: This is the patient's initial encounter. Patient reports that signs and symptoms have been present for 1 day and indicates a pain score of 5/10. MEDICAL/SURGICAL HISTORY: Gastroesophageal reflux disease. . Mitral valve repair. RADIATION DOSE: 36.02 CTDI (mGy) COMPARISON: [facility], CT HEAD W/O CONTRAST, 01/15/2018. [facility], MR BRAIN W AND W/O CONTRAST, 06/06/2017. . TECHNIQUE: CT of the head without contrast. Using automated exposure control and adjustment of the mA and/or kV according to patient size, radiation dose was kept as low as reasonably achievable to ob tain optimal diagnostic quality images. DICOM format image data is available electronically for revi ew and comparison. FINDINGS: Cerebrum: Bifrontal encephalomalacia is again noted and unchanged. Old infarct involving the left po sterior inferior cerebellar hemisphere is also unchanged. The ventricles, sulci and cisterns are stab le. There is no acute infarct, acute hemorrhage, midline shift or extra-axial fluid collections. Posterior Fossa: The cerebellum and brainstem are intact. The 4th ventricle is midline. The cerebe llopontine angle is unremarkable. Extracranial: The visualized portion of the orbits is intact. Skull: The calvaria is intact. No evidence of skull fracture. CONCLUSION: 1. Stable bifrontal encephalomalacia and old infarct involving the left posterior inferior cerebella r hemisphere. 2. No acute infarct, acute hemorrhage, midline shift or extra-axial fluid collections. . Electronically signed by: Karl Gonzalez MD Board Certified Radiologist 02/01/2018 9:22 AM EST
[2018-02-01 12:23] VITALS: BP 125/67; PULSE 73; RESP 14; TEMP 98.3; O2SAT 97
== END 2018-02-01 13:41 | disposition home or self-care (01) ==
LOC: HSDI 07:59 → HSDC 07:59 → N06 15:41
PROVIDERS: ADMIT Orthopaedic Surgery; ATTEND Orthopaedic Surgery
CPT/HCPCS: 70450; 73120; 76000; 85025; 86850; 86900; 86901; 94150; 96365; C1713; C1776; G0378; J0131; J0690; J1100; J2250; J2795; J3010; J7120